=== PATIENT | male | born 1940 | race Caucasian/White ===

== ENCOUNTER → 2017-01-25 | Outpatient (REF) | payer MEDICARE ==
[~2017-01-25] MED LIST: AMLO10TA2 PO; ASPI1TAB PO; BUSP5TA PO; HYDR-2807 PO; ISOS20TAB PO
[2017-01-25 18:31] LABS: MEAN CORPUSCULAR HEMOGLOBIN 28.7 pg (27.0-33.0); MEAN CORPUSCULAR HGB CONC 32.8 g/dl (32.0-36.5); MEAN CORPUSCULAR VOLUME 87.6 fl (80.0-96.0); RED CELL DISTRIBUTION WIDTH 15.6 % (11.5-14.5); WHITE BLOOD COUNT 8.1 K/mm3 (4.0-10.0)
[2017-01-25 19:03] LABS: FOLATE > 24.0 NG/ML (>5.4); VITAMIN B12 LEVEL 489 PG/ML (247-911)
[2017-01-25 19:22] LABS: ALBUMIN 3.8 GM/DL (3.2-5.2); ALBUMIN/GLOBULIN RATIO 1.09 (1.00-1.93); ALKALINE PHOSPHATASE 83 U/L (45-117); ALT/SGPT 21 U/L (12-78); ANION GAP 7 MEQ/L (8-16); AST/SGOT 14 U/L (15-37); BILIRUBIN,TOTAL 0.2 MG/DL (0.2-1.0); BLOOD UREA NITROGEN 19 MG/DL (7-18); CALCIUM LEVEL 9.1 MG/DL (8.8-10.2); CARBON DIOXIDE LEVEL 28 MEQ/L (21-32); CHLORIDE LEVEL 106 MEQ/L (98-107); CREATININE FOR GFR 1.33 MG/DL (0.70-1.30); FREE T4 0.95 NG/DL (0.76-1.46); GLUCOSE, FASTING 120 MG/DL (83-110); POTASSIUM SERUM 4.2 MEQ/L (3.5-5.1); SODIUM LEVEL 141 MEQ/L (136-145); TOTAL PROTEIN 7.3 GM/DL (6.4-8.2)
== END ==
LOC: M SFHCADAM 13:45
PROVIDERS: ATTEND Family Medicine
DX: R63.4 Abnormal weight loss (principal); R53.83 Other fatigue; E74.9 Disorder of carbohydrate metabolism, unspecified; F17.210 Nicotine dependence, cigarettes, uncomplicated; Z79.899 Other long term (current) drug therapy
CPT/HCPCS: 80053; 82607; 82746; 83036; 84439; 84443; 85027; 85652; 99406; G0463

== ENCOUNTER → 2017-02-06 | Outpatient (CLI) | payer MEDICARE ==
--- NOTE | 2017-02-06 16:36 | REP ---
REASON: Weight loss. COMPARISON: 09/03/2013. The lack of intravenous contrast decreases the sensitivity of the exam. There is no mediastinal or hilar adenopathy. There are no pleural or pericardial effusions. Calcific atherosclerotic changes are again seen in the thoracic aorta status quo. There is no change in appearance of the imaged upper abdomen. There are renovascular calcifications bilaterally status quo. There is no change in appearance of the imaged osseous structures. There are age related changes status quo. Evaluation of the lung mckeon again show lung field hyperexpansion with scattered cystic air spaces in a fashion which appears slightly increased from the prior exam. There is a new asymmetric opacity in the right upper lobe which is part solid. The solid component measures 8 mm with an overall measurement of 1 cm. There are no other new abnormal nodules, masses, or opacities. IMPRESSION: New asymmetric right upper lobe density as described above according to the revised Fleischner's society criteria this represents a category 4B lesion for which CT PET and or tissue sampling is recommended depending on the probability of malignancy and comorbidities. Since the solid component measures [address] PET alone may be used. Signed by Juice Darling DO 02/07/2017 09:04 A
== END ==
LOC: M RAD 15:13
PROVIDERS: ATTEND Family Medicine
DX: R63.4 Abnormal weight loss (principal); J44.9 Chronic obstructive pulmonary disease, unspecified; R91.8 Other nonspecific abnormal finding of lung field

== ENCOUNTER → 2017-02-26 | Outpatient (CLI) | payer MEDICARE ==
--- NOTE | 2017-02-27 19:35 | REP ---
Whole body PET CT scan: Studies performed for a right upper lobe lung nodule identified on a recent CT of the chest dated seven 07/17/2017. The the patient had a prior whole body PET CT scan dated 03/13/2012. Images from that scan are no longer available on the computer archive. However, the transcribed report of the prior study states that there were no hypermetabolic foci. On the study today whole-body PET CT scanning is performed from the skull base to the upper thighs: Neck and supraclavicular areas: There are no hypermetabolic foci. Chest: There are no hypermetabolic foci. The patient's known lung nodule in the right upper lobe demonstrates a maximal standard uptake value of 0.4 indicating no radiotracer uptake. Abdomen, pelvis and upper thighs: There is a hypermetabolic mass in the rectum measuring 3 cm in diameter with a standard uptake value of 12.0, compatible with neoplasm. There are no other hypermetabolic foci. 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 There are no other hypermetabolic foci. Specifically, the patient's known right lung nodule demonstrates no radiotracer avidity. The study is performed with 10 mCi of F 18 FDG. Signed by Judd Zuniga MD 02/27/2017 07:27 P
== END ==
LOC: M PLARAD 15:27
PROVIDERS: ATTEND Internal Medicine Pulmonary Disease
DX: K62.9 Disease of anus and rectum, unspecified (principal); R91.1 Solitary pulmonary nodule
CPT/HCPCS: 78815; A9552

== ENCOUNTER → 2017-04-11 | Outpatient (CLI) | payer MEDICARE ==
[~2017-04-11] VITALS: Ht 170.2 cm; Wt 76.2 kg
[~2017-04-11] MED LIST changes: +LIDOCAINE 2% INJ 100 MG/5 ML SDV (FOR ANES.) As Ordered ONE; +NS 1,000 ML IV ONE; +PROPOFOL 200 MG/20 ML VIAL As Ordered ONE
--- NOTE | 2017-04-11 09:22 | ROOR ---
Patient Name: Judd Brady Procedure Date: 04/11/2017 9:04 AM Date of : 1940 Age: 76 Room: [facility] Gender: Male Note Status: Finalized Procedure: Upper GI endoscopy Indications: Melena Providers: Malik Elam Jr, MD Referring MD: Arsenio Quiroz MD Requesting Provider: Medicines: Propofol per Anesthesia Complications: No immediate complications. Procedure: Pre-Anesthesia Assessment: - Prior to the procedure, a History and Physical was performed, and patient medications and allergies were reviewed. The patient is competent. The risks and benefits of the procedure and the sedation options and risks were discussed with the patient. All questions were answered and informed consent was obtained. Patient identification and proposed procedure were verified by the physician and the nurse in the pre-procedure area and in the procedure room. Mental Status Examination: alert and oriented. Airway Examination: normal oropharyngeal airway and neck mobility. Respiratory Examination: clear to auscultation. CV Examination: normal. ASA Grade Assessment: II - A patient with mild systemic disease. After reviewing the risks and benefits, the patient was deemed in satisfactory condition to undergo the procedure. The anesthesia plan was to use moderate sedation / analgesia (conscious sedation). Immediately prior to administration of medications, the patient was re-assessed for adequacy to receive sedatives. The heart rate, respiratory rate, oxygen saturations, blood pressure, adequacy of pulmonary ventilation, and response to care were monitored throughout the procedure. The physical status of the patient was re-assessed after the procedure. The Endoscope was introduced through the mouth, and advanced to the second part of duodenum. The patient tolerated the procedure well. Findings: The upper third of the esophagus, middle third of the esophagus and lower third of the esophagus were normal. A medium-sized hiatal hernia was present. Scattered moderate inflammation characterized by congestion (edema), erosions, erythema and friability was found in the gastric body and in the gastric antrum. Biopsies were taken with a cold forceps for histology. The cardia, gastric fundus and gastric body were normal. The second portion of the duodenum was normal. Mild inflammation characterized by congestion (edema), erythema, friability and granularity was found in the duodenal bulb. Impression: - Normal upper third of esophagus, middle third of esophagus and lower third of esophagus. - Medium-sized hiatal hernia. - Gastritis. Biopsied. - Normal cardia, gastric fundus and gastric body. - Normal second portion of the duodenum. - Duodenitis. Recommendation: - Discharge patient to home (ambulatory). - Return to my office as previously scheduled. Malik Elam MD Malik Elam Jr, MD 04/11/2017 9:22:00 AM This report has been signed electronically. Number of Addenda: 0 Note Initiated On: 04/11/2017 9:04 AM Estimated Blood Loss: Estimated blood loss: none.
--- NOTE | 2017-04-11 09:36 | ROOR ---
Patient Name: Judd Brady Procedure Date: 04/11/2017 9:05 AM Date of : 1940 Age: 76 Room: [facility] Gender: Male Note Status: Finalized Procedure: Colonoscopy Indications: Abnormal PET scan of the GI tract Providers: Malik Elam Jr, MD Referring MD: Arsenio Quiroz MD Requesting Provider: Medicines: Propofol per Anesthesia Complications: No immediate complications. Procedure: Pre-Anesthesia Assessment: - Prior to the procedure, a History and Physical was performed, and patient medications and allergies were reviewed. The patient is competent. The risks and benefits of the procedure and the sedation options and risks were discussed with the patient. All questions were answered and informed consent was obtained. Patient identification and proposed procedure were verified by the physician and the nurse in the pre-procedure area and in the procedure room. Mental Status Examination: alert and oriented. Airway Examination: normal oropharyngeal airway and neck mobility. Respiratory Examination: clear to auscultation. CV Examination: normal. ASA Grade Assessment: II - A patient with mild systemic disease. After reviewing the risks and benefits, the patient was deemed in satisfactory condition to undergo the procedure. The anesthesia plan was to use moderate sedation / analgesia (conscious sedation). Immediately prior to administration of medications, the patient was re-assessed for adequacy to receive sedatives. The heart rate, respiratory rate, oxygen saturations, blood pressure, adequacy of pulmonary ventilation, and response to care were monitored throughout the procedure. The physical status of the patient was re-assessed after the procedure. The Colonoscope was introduced through the anus and advanced to the cecum, identified by appendiceal orifice and ileocecal valve. The colonoscopy was performed without difficulty. The patient tolerated the procedure well. The quality of the bowel preparation was adequate and good. Findings: The perianal exam findings include non-thrombosed external hemorrhoids, non-thrombosed internal hemorrhoids, internal hemorrhoids that prolapse with straining, but spontaneously regress to the resting position (Grade II) and internal hemorrhoids that prolapse with straining, but require manual replacement into the anal canal (Grade III). The rectum appeared normal. The recto-sigmoid colon, transverse colon, ascending colon, cecum, appendiceal orifice and ileocecal valve appeared normal. Multiple small and large-mouthed diverticula were found in the sigmoid colon and descending colon. Two medium-sized angiodysplastic lesions without bleeding were found in the cecum. Impression: - Non-thrombosed external hemorrhoids, non-thrombosed internal hemorrhoids, internal hemorrhoids that prolapse with straining, but spontaneously regress to the resting position (Grade II) and internal hemorrhoids that prolapse with straining, but require manual replacement into the anal canal (Grade III) found on perianal exam. - The rectum is normal. - The recto-sigmoid colon, transverse colon, ascending colon, cecum, appendiceal orifice and ileocecal valve are normal. - Diverticulosis in the sigmoid colon and in the descending colon. - Two non-bleeding colonic angiodysplastic lesions. - No specimens collected. Recommendation: - Discharge patient to home (ambulatory). - Repeat colonoscopy in 10 years for screening purposes. Malik Elam MD Malik Elam Jr, MD 04/11/2017 9:36:22 AM This report has been signed electronically. Number of Addenda: 0 Note Initiated On: 04/11/2017 9:05 AM Estimated Blood Loss: Estimated blood loss: none.
[2017-04-11 10:03] VITALS: BP 136/67
== END | disposition home or self-care (01) ==
LOC: M OPP 07:54
PROVIDERS: ATTEND Surgery
DX: R93.3 Abnormal findings on diagnostic imaging of other parts of digestive tract (principal); K64.2 Third degree hemorrhoids; K64.1 Second degree hemorrhoids; K64.4 Residual hemorrhoidal skin tags; K55.20 Angiodysplasia of colon without hemorrhage; K57.30 Diverticulosis of large intestine without perforation or abscess without bleeding; K92.1 Melena; K44.9 Diaphragmatic hernia without obstruction or gangrene; K29.80 Duodenitis without bleeding; K29.70 Gastritis, unspecified, without bleeding; K21.9 Gastro-esophageal reflux disease without esophagitis; I25.10 Atherosclerotic heart disease of native coronary artery without angina pectoris; I10 Essential (primary) hypertension; I25.2 Old myocardial infarction; J44.9 Chronic obstructive pulmonary disease, unspecified; Z86.73 Personal history of transient ischemic attack (TIA), and cerebral infarction without residual deficits; F17.210 Nicotine dependence, cigarettes, uncomplicated; G47.30 Sleep apnea, unspecified; Z88.5 Allergy status to narcotic agent; Z79.82 Long term (current) use of aspirin; Z79.899 Other long term (current) drug therapy

== ENCOUNTER → 2018-01-02 | Outpatient (REF) | payer MEDICARE ==
[2018-01-02 12:11] LABS: HEMATOCRIT 31.9 % (42.0-52.0); HEMOGLOBIN 10.1 g/dl (13.5-17.5); MEAN CORPUSCULAR HEMOGLOBIN 26.9 pg (27.0-33.0); MEAN CORPUSCULAR HGB CONC 31.7 g/dl (32.0-36.5); MEAN CORPUSCULAR VOLUME 84.8 fl (80.0-96.0); PLATELET COUNT, AUTOMATED 370 10^3/uL (150-450); RED BLOOD COUNT 3.76 10^6/uL (4.30-6.10); RED CELL DISTRIBUTION WIDTH 15.8 % (11.5-14.5); WHITE BLOOD COUNT 11.2 10^3/uL (4.0-10.0)
[2018-01-02 12:42] LABS: ALBUMIN 3.3 GM/DL (3.2-5.2); ALKALINE PHOSPHATASE 92 U/L (45-117); ALT/SGPT 11 U/L (12-78); ANION GAP 6 MEQ/L (8-16); AST/SGOT 9 U/L (7-37); BILIRUBIN,TOTAL 0.3 MG/DL (0.2-1.0); BLOOD UREA NITROGEN 21 MG/DL (7-18); CALCIUM LEVEL 8.9 MG/DL (8.8-10.2); CARBON DIOXIDE LEVEL 29 MEQ/L (21-32); CHLORIDE LEVEL 107 MEQ/L (98-107); CHOLESTEROL LEVEL 151 MG/DL (<200); CHOLESTEROL RISK RATIO 3.282 (<5); CREATININE FOR GFR 1.22 MG/DL (0.70-1.30); GLOMERULAR FILTRATION RATE > 60.0 (>42); GLUCOSE, FASTING 81 MG/DL (70-100); HDL CHOLESTEROL 46 MG/DL (>40); NON-HDL-C 105 MG/DL; POTASSIUM SERUM 4.7 MEQ/L (3.5-5.1); SODIUM LEVEL 142 MEQ/L (136-145); TOTAL PROTEIN 6.6 GM/DL (6.4-8.2); TRIGLYCERIDES LEVEL 80 MG/DL (<150)
== END ==
LOC: M SFHCPLAZ 09:54
DX: I25.10 Atherosclerotic heart disease of native coronary artery without angina pectoris (principal); E78.2 Mixed hyperlipidemia
CPT/HCPCS: 80053

== ENCOUNTER → 2018-01-09 | Outpatient (REF) | payer MEDICARE ==
[2018-01-09 19:58] LABS: RETIC HEMOGLOBIN EQUIVALENT 29.3 pg (24-36); RETICULOCYTE # 51.7 10^9/L (17-77); RETICULOCYTE % 1.3 % (0.5-1.5)
[2018-01-09 20:16] LABS: FERRITIN 29 NG/ML (26-388); IRON (FE) 22 UG/DL (65-175); PERCENT SATURATION 6.8 % (19.7-50.0); TOTAL IRON BINDING CAPACITY 322 UG/DL (250-450); TOTAL PROTEIN 6.9 GM/DL (6.4-8.2); VITAMIN B12 LEVEL 325 PG/ML (247-911)
[2018-01-10 12:49] LABS: FOLATE 16.1 NG/ML (>5.4)
[2018-01-12 00:06] LABS: FREE KAPPA LIGHT CHAINS SERUM 35.4 mg/L (3.3-19.4); FREE LAMBDA LIGHT CHAINS SERUM 25.6 mg/L (5.7-26.3); KAPPA/LAMBDA RATIO SERUM 1.38 (0.26-1.65)
[2018-01-13 13:03] LABS: ALBUMIN 3.51 GM/DL (3.29-5.55); ALBUMIN % 50.8 % (55.8-66.1); ALPHA-1-GLOBULIN % 7.2 % (2.9-4.9); ALPHA-2-GLOBULINS 0.98 GM/DL (0.42-0.99); ALPHA-2-GLOBULINS % 14.2 % (7.1-11.8); BETA-1-GLOBULINS 0.51 GM/DL (0.28-0.60); BETA-1-GLOBULINS % 7.4 % (4.7-7.2); BETA-2-GLOBULINS 0.45 GM/DL (0.19-0.55); BETA-2-GLOBULINS % 6.5 % (3.2-6.5); GAMMA GLOBULIN % 13.9 % (11.1-18.8); GAMMA GLOBULINS 0.96 GM/DL (0.65-1.58)
== END ==
LOC: M SFHCADAM 12:18
DX: D64.9 Anemia, unspecified (principal)
CPT/HCPCS: 82746

== ENCOUNTER 2018-01-15 07:09 | Outpatient (CLI) | payer MEDICARE | END 2018-01-16 | LOC: M RAD 07:09 | DX: R51 Headache (principal); I67.2 Cerebral atherosclerosis | CPT/HCPCS: 70551 ==

== ENCOUNTER → 2018-05-14 | Outpatient (REF) | payer MEDICARE ==
[2018-05-14 13:02] LABS: MEAN CORPUSCULAR HEMOGLOBIN 26.7 pg (27.0-33.0); MEAN CORPUSCULAR HGB CONC 31.6 g/dl (32.0-36.5); MEAN CORPUSCULAR VOLUME 84.4 fl (80.0-96.0); PLATELET COUNT, AUTOMATED 336 10^3/uL (150-450); RETICULOCYTE # 58.1 10^9/L (17-77); RETICULOCYTE % 1.3 % (0.5-1.5); WHITE BLOOD COUNT 8.8 10^3/uL (4.0-10.0)
[2018-05-14 13:32] LABS: ANION GAP 6 MEQ/L (8-16); BLOOD UREA NITROGEN 26 MG/DL (7-18); CALCIUM LEVEL 9.5 MG/DL (8.8-10.2); CARBON DIOXIDE LEVEL 29 MEQ/L (21-32); CHLORIDE LEVEL 107 MEQ/L (98-107); CREATININE FOR GFR 1.58 MG/DL (0.70-1.30); FERRITIN 23 NG/ML (26-388); GLOMERULAR FILTRATION RATE 45.6 (>42); GLUCOSE, FASTING 109 MG/DL (70-100); IRON (FE) 29 UG/DL (65-175); PERCENT SATURATION 7.9 % (19.7-50.0); PHOSPHORUS LEVEL 3.6 MG/DL (2.5-4.9); POTASSIUM SERUM 4.7 MEQ/L (3.5-5.1); SODIUM LEVEL 142 MEQ/L (136-145); TOTAL IRON BINDING CAPACITY 365 UG/DL (250-450)
== END ==
LOC: M SFHCADAM 09:50
DX: D50.9 Iron deficiency anemia, unspecified (principal)
CPT/HCPCS: 83550

== ENCOUNTER → 2018-09-17 | Outpatient (CLI) | payer MEDICARE ==
[~2018-09-17] MED LIST changes: -AMLO10TA2 PO; +AMLO10TA5 PO; -LIDOCAINE 2% INJ 100 MG/5 ML SDV (FOR ANES.) As Ordered ONE; -NS 1,000 ML IV ONE; -PROPOFOL 200 MG/20 ML VIAL As Ordered ONE
[2018-09-17 13:09] LABS: CALCIUM LEVEL 8.8 MG/DL (8.8-10.2); CREATININE FOR GFR 1.25 MG/DL (0.70-1.30); GLOMERULAR FILTRATION RATE 59.8 (>42); POTASSIUM SERUM 4.5 MEQ/L (3.5-5.1)
[2018-09-17 13:10] LABS: PERCENT SATURATION 5.8 % (19.7-50.0)
[2018-09-17 13:26] LABS: HEMATOCRIT 28.5 % (42.0-52.0); HEMOGLOBIN 9.2 g/dl (13.5-17.5); MEAN CORPUSCULAR HEMOGLOBIN 25.2 pg (27.0-33.0); MEAN CORPUSCULAR HGB CONC 32.3 g/dl (32.0-36.5); MEAN CORPUSCULAR VOLUME 78.1 fl (80.0-96.0); PLATELET COUNT, AUTOMATED 343 10^3/uL (150-450); RED BLOOD COUNT 3.65 10^6/uL (4.30-6.10); WHITE BLOOD COUNT 7.2 10^3/uL (4.0-10.0)
== END ==
LOC: M WUC 10:07
PROVIDERS: ATTEND Family Medicine
DX: D50.9 Iron deficiency anemia, unspecified (principal); I11.9 Hypertensive heart disease without heart failure

== ENCOUNTER → 2018-10-07 | Outpatient (REF) | payer MEDICARE ==
[2018-10-07 12:32] LABS: AMORPHOUS SEDIMENT SMALL (NEGATIVE); APPEARANCE, URINE HAZY (CLEAR); BACTERIA, URINE AUTO NEGATIVE (NEGATIVE); BILIRUBIN, URINE AUTO NEGATIVE (NEGATIVE); BLOOD, URINE BLOOD NEGATIVE (NEGATIVE); CALCIUM OXALATE CRYSTALS SMALL; COLOR, URINE AMBER (YELLOW); GLUCOSE, URINE (UA) AUTO NEGATIVE (NEGATIVE); KETONE, URINE AUTO TRACE mg/dL (NEGATIVE); LEUKOCYTE ESTERASE, URINE AUTO NEGATIVE (NEGATIVE); MUCUS, URINE SMALL (NEGATIVE); NITRITE, URINE AUTO NEGATIVE (NEGATIVE); PROTEIN, URINE AUTO 1+ mg/dL (NEGATIVE); RBC, URINE AUTO 2 /HPF (0-3); SPECIFIC GRAVITY URINE AUTO 1.027 (1.002-1.035); SQUAMOUS EPITHELIAL CELL UR AU 0 /HPF (0-6); WBC, URINE AUTO 1 /HPF (0-3)
== END ==
LOC: M SFHCADAM 11:08
PROVIDERS: ATTEND Family Medicine
DX: N41.0 Acute prostatitis (principal)

== ENCOUNTER → 2018-12-09 | Outpatient (CLI) | payer MEDICARE ==
[~2018-12-09] MED LIST changes: -ASPI1TAB PO; +ASPI81TA26 PO
[2018-12-09 09:52] LABS: BASO # 0.1 10^3/uL (0.0-0.2); BASO % 1.3 % (0.0-1.0); EOS # 0.2 10^3/uL (0.0-0.50); EOS % 3.7 % (0.0-3.0); HEMATOCRIT 38.7 % (42.0-52.0); HEMOGLOBIN 12.3 g/dl (13.5-17.5); LYMPH # 1.3 10^3/uL (1.5-4.5); LYMPH % 24.2 % (24.0-44.0); MEAN CORPUSCULAR HEMOGLOBIN 27.5 pg (27.0-33.0); MEAN CORPUSCULAR HGB CONC 31.8 g/dl (32.0-36.5); MEAN CORPUSCULAR VOLUME 86.4 fl (80.0-96.0); MONO # 0.5 10^3/uL (0.0-0.8); MONO % 9.7 % (0.0-5.0); NEUTROPHILS # 3.3 10^3/uL (1.8-7.7); NEUTROPHILS % 60.9 % (36.0-66.0); PLATELET COUNT, AUTOMATED 261 10^3/uL (150-450); RED BLOOD COUNT 4.48 10^6/uL (4.30-6.10); WHITE BLOOD COUNT 5.4 10^3/uL (4.0-10.0)
[2018-12-09 10:12] LABS: ALBUMIN 3.7 GM/DL (3.2-5.2); ALT/SGPT 20 U/L (12-78); BILIRUBIN,TOTAL 0.2 MG/DL (0.2-1.0); BLOOD UREA NITROGEN 22 MG/DL (7-18); CARBON DIOXIDE LEVEL 28 MEQ/L (21-32); CHLORIDE LEVEL 108 MEQ/L (98-107); CREATININE FOR GFR 1.02 MG/DL (0.70-1.30); FREE T4 0.93 NG/DL (0.76-1.46); GLOMERULAR FILTRATION RATE > 60.0 (>42); GLUCOSE, FASTING 99 MG/DL (70-100); POTASSIUM SERUM 4.1 MEQ/L (3.5-5.1); SODIUM LEVEL 141 MEQ/L (136-145); TOTAL PROTEIN 6.7 GM/DL (6.4-8.2)
== END ==
LOC: M LAB 09:02
PROVIDERS: ATTEND Internal Medicine Gastroenterology
DX: D50.9 Iron deficiency anemia, unspecified (principal)

== ENCOUNTER → 2018-12-11 | Outpatient (CLI) | payer MEDICARE ==
[~2018-12-11] MED LIST changes: +GASTROGRAFIN SOLUTION 30ML (Q9963) As Ordered ONE; +ISOVUE-370 76% 100ML VIAL (Q9967) As Ordered ONE
--- NOTE | 2018-12-11 16:03 | REP ---
CT abdomen and pelvis without and with IV contrast: With oral contrast. History: 50 pound weight loss in the last year. Iron deficiency anemia. CT contrast dose: 100 ml of intravenous Isovue 370. Comparison study is imaging from a PET-CT study dated February 26, 2017. CT findings: Preliminary digital steam locomotive firer/fireman radiograph demonstrates moderate stool. Bowel gas pattern is otherwise normal. The lung bases show emphysematous changes bilaterally. There are calcific pleural plaques at the right base. They are otherwise clear. The liver parenchyma is somewhat hyperdense relative to spleen on noncontrast study. This can be seen in iron deposition disorders such as hemochromatosis. No focal liver mass lesion is seen. The spleen is homogeneous in texture and normal in size. No adrenal lesion is seen. There is heavy vascular calcification. There is no evidence of hydronephrosis. No intrarenal nephrolithiasis is seen. There is some mild bilateral renal cortical atrophy. No abnormalities noted in the gallbladder or the pancreas. There is an infrarenal abdominal aortic aneurysm measuring 3.6 cm in greatest diameter. Iliac arteries are ectatic but non-aneurysmal. No retroperitoneal mass or adenopathy is seen. Small and large intestinal bowel loops show left colonic diverticulosis and moderate stool. There is formed stool dilating the rectum consistent with obstipation. Prostate and seminal vesicles are unremarkable. Urinary bladder is intact. No abdominal wall defect is seen. No colonic or other gastrointestinal mass lesion is observed. Impression: Somewhat hyperdense liver relative to spleen on noncontrast study. Moderate stool with fecal impaction constipation pattern. Sigmoid and descending colon diverticulosis. No CT evidence of diverticulitis. No mass lesion seen. 3.6 cm infrarenal abdominal aortic aneurysm. Electronically Signed by Del Blanco MD 12/11/2018 08:18 P
== END ==
LOC: M RAD 12:31
PROVIDERS: ATTEND Internal Medicine Gastroenterology
DX: I71.4 Abdominal aortic aneurysm, without rupture (principal); K57.30 Diverticulosis of large intestine without perforation or abscess without bleeding; K56.41 Fecal impaction; D50.9 Iron deficiency anemia, unspecified
CPT/HCPCS: 74178; Q9963; Q9967

== ENCOUNTER 2019-01-01 08:49 | Emergency (ER) | payer MEDICARE ==
[~2019-01-01] VITALS: Ht 170.2 cm; Wt 64.1 kg
[~2019-01-01 08:49] MED LIST changes: -GASTROGRAFIN SOLUTION 30ML (Q9963) As Ordered ONE; -ISOVUE-370 76% 100ML VIAL (Q9967) As Ordered ONE
--- NOTE | 2019-01-01 09:40 | REP ---
LEFT KNEE, FIVE VIEWS: Five views left knee performed. There is no acute fracture or dislocation. There is moderate medial joint space narrowing with subchondral sclerosis and spurring. There is mild patellofemoral compartment narrowing with subchondral sclerosis and spurring. There is mild to moderate joint effusion. Vascular calcifications are seen posteriorly. IMPRESSION: Degenerative changes. Mild to moderate joint effusion. No acute fracture or dislocation. Electronically Signed by Judd Rogers MD 01/05/2019 01:41 P
[2019-01-01] MEDS ORDERED: NORCO, ANEXSIA 5/325MG TABLET (HYDROcodone/ACETAMINOPHEN) PO ONE (09:45)
[2019-01-01] MEDS ORDERED: NORC1TAB7 PO ×2 (10:23→11:01)
[2019-01-01 10:30] VITALS: BP 122/63
[2019-01-02] MEDS ORDERED: TAMS1CAP17 PO (08:28)
[2019-01-02] MEDS ORDERED: FINA5TAB2 PO (08:28)
== END 2019-01-01 10:38 | disposition home or self-care (01) ==
LOC: M ED 08:49
DX: M25.462 Effusion, left knee (principal); S80.02XA Contusion of left knee, initial encounter; W01.0XXA Fall on same level from slipping, tripping and stumbling without subsequent striking against object, initial encounter; Y92.099 Unspecified place in other non-institutional residence as the place of occurrence of the external cause; Y93.9 Activity, unspecified; Y99.9 Unspecified external cause status; I10 Essential (primary) hypertension; Z72.0 Tobacco use; Z79.82 Long term (current) use of aspirin; Z79.899 Other long term (current) drug therapy; Z88.8 Allergy status to other drugs, medicaments and biological substances

== ENCOUNTER → 2019-01-07 | Outpatient (CLI) | payer MEDICARE ==
[~2019-01-07] MED LIST changes: +FINA5TAB2 PO; +NORC1TAB7 PO; +TAMS1CAP17 PO
[2019-01-07 16:27] LABS: BLOOD UREA NITROGEN 21 MG/DL (7-18); CALCIUM LEVEL 8.6 MG/DL (8.8-10.2); CARBON DIOXIDE LEVEL 26 MEQ/L (21-32); CHLORIDE LEVEL 107 MEQ/L (98-107); CREATININE FOR GFR 1.08 MG/DL (0.70-1.30); FERRITIN 49 NG/ML (26-388); GLOMERULAR FILTRATION RATE > 60.0 (>42); GLUCOSE, FASTING 92 MG/DL (70-100); IRON (FE) 48 UG/DL (65-175); PERCENT SATURATION 16.1 % (19.7-50.0); POTASSIUM SERUM 4.2 MEQ/L (3.5-5.1); SODIUM LEVEL 141 MEQ/L (136-145); TOTAL IRON BINDING CAPACITY 298 UG/DL (250-450)
[2019-01-07 16:29] LABS: HEMATOCRIT 36.3 % (42.0-52.0); HEMOGLOBIN 11.5 g/dl (13.5-17.5); MEAN CORPUSCULAR HEMOGLOBIN 27.9 pg (27.0-33.0); MEAN CORPUSCULAR HGB CONC 31.7 g/dl (32.0-36.5); MEAN CORPUSCULAR VOLUME 88.1 fl (80.0-96.0); PLATELET COUNT, AUTOMATED 232 10^3/uL (150-450); RED BLOOD COUNT 4.12 10^6/uL (4.30-6.10); WHITE BLOOD COUNT 5.8 10^3/uL (4.0-10.0)
== END ==
LOC: M WUC 11:50
PROVIDERS: ATTEND Family Medicine
DX: D50.9 Iron deficiency anemia, unspecified (principal); N13.8 Other obstructive and reflux uropathy

== ENCOUNTER 2019-01-15 08:08 | Day surgery (SDC) | payer MEDICARE ==
[~2019-01-15] VITALS: Ht 170.2 cm; Wt 65.3 kg
[~2019-01-15 08:08] MED LIST changes: +NS 1,000 ML IV ONE
[2019-01-15] MEDS ORDERED: PROPOFOL 500 MG/50 ML VIAL As Ordered ONE (09:10)
[2019-01-15] MEDS ORDERED: LIDOCAINE 2% INJ 100 MG/5 ML SDV (FOR ANES.) As Ordered ONE (09:10)
[2019-01-15] MEDS ORDERED: fentaNYL 100 MCG/2 ML INJECTION (J3010) As Ordered ONE (09:10)
--- NOTE | 2019-01-15 09:23 | ROOR ---
Patient Name: Judd Brady Procedure Date: 01/15/2019 9:01 AM Date of : 1940 Age: 78 Room: [facility] Gender: Male Note Status: Finalized Procedure: Upper GI endoscopy Indications: Iron deficiency anemia Providers: Alessandro ROB MD Referring MD: Arsenio Quiroz MD Requesting Provider: Medicines: Monitored Anesthesia Care Complications: No immediate complications. Procedure: Pre-Anesthesia Assessment: - The heart rate, respiratory rate, oxygen saturations, blood pressure, adequacy of pulmonary ventilation, and response to care were monitored throughout the procedure. The Endoscope was introduced through the mouth, and advanced to the second part of duodenum. The upper GI endoscopy was accomplished without difficulty. The patient tolerated the procedure well. Findings: The esophagus was normal. The stomach was normal. The examined duodenum was normal. Hematin (altered blood/ypqnck-xdgvqu-ebng material) was found in the stomach. Impression: - Normal esophagus. - Normal stomach. - small amount of hematin (altered blood/ncjqht-dgizht-wetr material) in the stomach. - Normal examined duodenum. - No specimens collected. Recommendation: - Small heme in stomach without a source. Possibility of swallowed blood from nosebleed,tongue bite or pulmonary.--I will order CT chest. - My office will call you in the next few days to set you up for this study/exam. Alessandro Rob MD Alessandro ROB MD 01/15/2019 9:22:32 AM Electronically signed by Alessandro ROB MD Number of Addenda: 0 Note Initiated On: 01/15/2019 9:01 AM Estimated Blood Loss: Estimated blood loss: none.
--- NOTE | 2019-01-15 10:05 | ROOR ---
Patient Name: Judd Brady Procedure Date: 01/15/2019 9:02 AM Date of : 1940 Age: 78 Room: [facility] Gender: Male Note Status: Finalized Procedure: Colonoscopy Indications: Iron deficiency anemia Providers: Alessandro ROB MD Referring MD: Arsenio Quiroz MD Requesting Provider: Medicines: Monitored Anesthesia Care Complications: No immediate complications. Procedure: Pre-Anesthesia Assessment: - The heart rate, respiratory rate, oxygen saturations, blood pressure, adequacy of pulmonary ventilation, and response to care were monitored throughout the procedure. The Colonoscope was introduced through the anus and advanced to 5 cm into the ileum. The colonoscopy was performed without difficulty. The patient tolerated the procedure well. The quality of the bowel preparation was adequate. Findings: The perianal and digital rectal examinations were normal. Four sessile polyps were found in the splenic flexure, hepatic flexure and cecum. The polyps were 4 to 5 mm in size. These polyps were removed with a cold snare. Resection and retrieval were complete. A single medium-sized angioectasia without bleeding was found in the cecum. A single medium-sized angioectasia without bleeding was found in the proximal transverse colon. For hemostasis, five hemostatic clips were successfully placed. Multiple small and large-mouthed diverticula were found in the sigmoid colon. There was evidence of diverticular spasm. Internal hemorrhoids were found during retroflexion. The hemorrhoids were moderate. Impression: - Four 4 to 5 mm polyps at the splenic flexure, at the hepatic flexure and in the cecum, removed with a cold snare. Resected and retrieved. - A single 1.3 cm non-bleeding colonic (cecum) angioectasia. This is not accessible to treatment/endoclip placement. - A single 1 cm non-bleeding colonic (transverse) angioectasia. Clips were placed. - Moderate diverticulosis in the sigmoid colon. There was evidence of diverticular spasm. - Internal hemorrhoids. Recommendation: - No ibuprofen, naproxen, or other non-steroidal anti-inflammatory drugs. - Continue/take daily iron supplement. - Telephone endoscopist for pathology results in 2 weeks. Alessandro Rob MD Alessandro ROB MD 01/15/2019 10:04:54 AM Electronically signed by Alessandro ROB MD Number of Addenda: 0 Note Initiated On: 01/15/2019 9:02 AM Estimated Blood Loss: Estimated blood loss: none.
[2019-01-15 10:20] VITALS: BP 151/72
== END 2019-01-15 10:29 | disposition home or self-care (01) ==
LOC: M OPP 08:08
PROVIDERS: ATTEND Internal Medicine Gastroenterology
DX: D12.3 Benign neoplasm of transverse colon (principal); D12.0 Benign neoplasm of cecum; K55.20 Angiodysplasia of colon without hemorrhage; K64.8 Other hemorrhoids; D50.9 Iron deficiency anemia, unspecified; K57.30 Diverticulosis of large intestine without perforation or abscess without bleeding; K92.2 Gastrointestinal hemorrhage, unspecified; F17.210 Nicotine dependence, cigarettes, uncomplicated; Z79.82 Long term (current) use of aspirin; Z79.899 Other long term (current) drug therapy; Z88.8 Allergy status to other drugs, medicaments and biological substances
CPT/HCPCS: 43235; 45385; 88305; J3010

== ENCOUNTER → 2019-02-04 | Outpatient (CLI) | payer MEDICARE ==
[~2019-02-04] MED LIST changes: -NS 1,000 ML IV ONE
--- NOTE | 2019-02-04 17:30 | REP ---
CT CHEST WITHOUT CONTRAST: 02/04/2019. Comparison: CT 06/06/2017, 02/06/2017. Clinical history: Hemoptysis. Prior solitary pulmonary nodule. Findings: Standard noncontrast technique protocol for CT with coronal and sagittal reconstructions. There are calcified pleural plaques bilaterally along the paraspinal region in the medial basal segments of both lower lobes. Small calcified granuloma deep sulcus right lower lobe as a benign finding. A couple of other tiny calcifications appear to be on the diaphragmatic pleura over the right lower lung zone posteriorly adjacent to the lower lobe. There is bullous emphysematous change scattered throughout. Greatest in the mid and upper lung zones. No pleural effusion, parenchymal mass or definite infiltrate. Some cylindrical bronchiectatic change evident. Ill-defined right upper lobe density dating back to 2017 is unchanged for 2 years indicating benign finding. I do not see dense consolidation. Tracheal airway and mainstem bronchi are grossly intact. The lobar bronchi also without definite filling defects or vessel cutoff. Heart size not enlarged. There is very minor pericardial thickening over the anterior heart margin unchanged. Coronary artery calcifications. Calcifications at the aortic root, ascending arch and descending aorta noted and grossly unchanged. No gross aneurysm. Esophagus without visible hiatal hernia. Subcentimeter mediastinal and hilar nodes with no axillary or supraclavicular mass. Bone windows show the sternum, manubrium, medial two-thirds of the clavicles included, ribs, visualized portions of scapulae and humeral heads were grossly unremarkable. Spine shows marginal osteophytes without compression deformity of destructive lesion. Some prominence of central pulmonary arteries suggesting pulmonary artery hypertension, presumably on the basis of COPD. Pancreas portion visible was unremarkable. Gallbladder seen in part shows some slight layering densities suggesting sludge. No calcified stone. That portion of liver and spleen included showed no mass or adjacent ascites. There is no ductal dilatation. Adrenal glands are grossly intact. The kidneys show some lobation and arterial calcifications in renal arteries and at the renal hilus. No hydronephrosis. Some scarring peripherally in the interpolar region on the left. Bowel loops in the upper abdomen unremarkable. Impression: 1. There is no acute infiltrate, pleural effusion, parenchymal or mediastinal mass visible. 2. Some coronary artery and arterial calcifications without aneurysm. 3. No pathologic sized mediastinal, hilar, axillary or supraclavicular mass. 4. Some degenerative changes in the spine without compression deformity or destructive lesion. Electronically Signed by Thad Steele MD 02/05/2019 08:16 A
== END ==
LOC: M RAD 13:25
PROVIDERS: ATTEND Internal Medicine Gastroenterology
DX: R04.2 Hemoptysis (principal)

== ENCOUNTER 2019-05-12 09:59 | Emergency (ER) | payer MEDICARE ==
[~2019-05-12] VITALS: Ht 170.2 cm; Wt 66.8 kg
[2019-05-12] MEDS ORDERED: FERR325T3 PO (10:17)
[2019-05-12] MEDS ORDERED: ATOR40TA75 PO (10:17)
[2019-05-12] MEDS ORDERED: FAMO40TA3 PO (10:17)
[2019-05-12 10:43] LABS: BASO # 0.1 10^3/uL (0.0-0.2); BASO % 0.8 % (0.0-1.0); EOS # 0.3 10^3/uL (0.0-0.5); EOS % 4.4 % (0.0-3.0); HEMATOCRIT 39.8 % (42.0-52.0); HEMOGLOBIN 12.7 g/dl (13.5-17.5); LYMPH # 1.5 10^3/uL (1.5-5.0); LYMPH % 23.8 % (24.0-44.0); MEAN CORPUSCULAR HEMOGLOBIN 28.2 pg (27.0-33.0); MEAN CORPUSCULAR HGB CONC 31.9 g/dl (32.0-36.5); MEAN CORPUSCULAR VOLUME 88.2 fl (80.0-96.0); MONO # 0.7 10^3/uL (0.0-0.8); MONO % 11.6 % (0.0-5.0); NEUTROPHILS # 3.8 10^3/uL (1.5-8.5); NEUTROPHILS % 59.2 % (36.0-66.0); PLATELET COUNT, AUTOMATED 290 10^3/uL (150-450); RED BLOOD COUNT 4.51 10^6/uL (4.30-6.10); WHITE BLOOD COUNT 6.4 10^3/uL (4.0-10.0)
[2019-05-12 11:18] LABS: ALBUMIN 3.7 GM/DL (3.2-5.2); ALT/SGPT 17 U/L (12-78); BILIRUBIN,DIRECT < 0.1 MG/DL (0.0-0.2); BILIRUBIN,TOTAL 0.4 MG/DL (0.2-1.0); BLOOD UREA NITROGEN 17 MG/DL (7-18); CALCIUM LEVEL 9.2 MG/DL (8.8-10.2); CARBON DIOXIDE LEVEL 28 MEQ/L (21-32); CHLORIDE LEVEL 105 MEQ/L (98-107); CREATININE FOR GFR 1.15 MG/DL (0.70-1.30); GLOMERULAR FILTRATION RATE > 60.0 (>42); GLUCOSE, FASTING 103 MG/DL (70-100); LIPASE 102 U/L (73-393); POTASSIUM SERUM 4.1 MEQ/L (3.5-5.1); SODIUM LEVEL 140 MEQ/L (136-145); TOTAL PROTEIN 7.1 GM/DL (6.4-8.2)
--- NOTE | 2019-05-12 11:33 | REP ---
CT brain: 05/12/2019. Indication: Syncope. Comparison: MRI brain dated 01/16/[address] brain dated 09/03/2013. Technique: Unenhanced axial images of the brain were obtained from skull base to vertex. Findings: There is no acute intracranial hemorrhage, acute cortical infarction, mass effect, hydrocephalus or acute calvarial fracture. Diffuse volume loss is present. Patchy areas of hypoattenuation scattered throughout the subcortical and periventricular white matter most consistent with chronic small vessel disease. Minimal periosteal mucosal thickening is noted within the visualized maxillary and ethmoid sinuses. The mastoid air cells are clear. Impression: No acute intracranial process. Electronically Signed by Genaro Tim DO 05/12/2019 11:24 A
[2019-05-12 11:56] LABS: CPK CREATINE PHOSPHOKINASE 61 U/L (39-308); MB/CK RELATIVE INDEX 1.64 (< OR =4); NT-PRO BNP 899 PG/ML (<450); TROPONIN I < 0.02 NG/ML (< 0.10)
--- NOTE | 2019-05-12 11:56 | REP ---
CT cervical spine: 05/12/2019. Indication: Cervical spine trauma. Comparison: 09/03/2013. Technique: Axial images of the cervical spine were obtained with sagittal and coronal reconstructions provided. Findings: There is no acute fracture, subluxation or dislocation. Vertebral body alignment is within anatomic limits. Significant spondylitic sequelae are present at C5/C6. There is no hemorrhage detected within the spinal canal. No areas of severe spinal canal narrowing are detected. Centrilobular emphysema sequelae are noted within the visualized lungs. Bilateral carotid atherosclerotic disease is present. Impression: No acute post traumatic injuries of the cervical spine. Electronically Signed by Genaro Tim DO 05/12/2019 11:47 A
--- NOTE | 2019-05-12 13:01 | REP ---
Single view chest: 05/12/2019. Indication: Syncope. Comparison: CT chest dated 02/04/2019. Findings: The lungs are free of infiltrate. There is no pneumothorax or significant pleural fluid. Emphysema sequelae are present. Right basilar linear atelectasis is noted. Cardiac silhouette is within normal limits. Impression: No acute cardiopulmonary process. Electronically Signed by Genaro Tim DO 05/12/2019 12:52 P
[2019-05-12] MEDS ORDERED: MECLIZINE 25 MG TABLET PO ONE (13:30)
[2019-05-12] MEDS ORDERED: PROMETHAZINE INJ 25 MG/ML VIAL (J2550) IV ONE (13:45)
[2019-05-12] MEDS ORDERED: NS 1,000 ML IV ONE (13:45)
[2019-05-12 15:08] VITALS: BP 170/86
[2019-05-12] MEDS ORDERED: MECL-86 PO (15:29)
[2019-05-12] MEDS ORDERED: ONDA4TAB5 PO (15:29)
--- NOTE | 2019-05-12 21:27 | ECGEPIP ---
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
== END 2019-05-12 15:42 | disposition home or self-care (01) ==
LOC: M ED 09:59
DX: R42 Dizziness and giddiness (principal); I95.1 Orthostatic hypotension; R00.1 Bradycardia, unspecified; I25.10 Atherosclerotic heart disease of native coronary artery without angina pectoris; I10 Essential (primary) hypertension; R91.8 Other nonspecific abnormal finding of lung field; J44.9 Chronic obstructive pulmonary disease, unspecified; E78.5 Hyperlipidemia, unspecified; Z87.19 Personal history of other diseases of the digestive system; Z86.73 Personal history of transient ischemic attack (TIA), and cerebral infarction without residual deficits; K21.9 Gastro-esophageal reflux disease without esophagitis; N40.0 Benign prostatic hyperplasia without lower urinary tract symptoms; D50.9 Iron deficiency anemia, unspecified; I71.4 Abdominal aortic aneurysm, without rupture; F17.200 Nicotine dependence, unspecified, uncomplicated; Z79.82 Long term (current) use of aspirin; Z79.899 Other long term (current) drug therapy; Z88.8 Allergy status to other drugs, medicaments and biological substances

== ENCOUNTER → 2019-07-07 | Outpatient (CLI) | payer MEDICARE ==
[~2019-07-07] MED LIST changes: +ATOR40TA75 PO; +FAMO40TA3 PO; +FERR325T3 PO; +MECL-86 PO; +ONDA4TAB5 PO
[2019-07-07 17:09] LABS: HEMATOCRIT 35.1 % (42.0-52.0); HEMOGLOBIN 10.5 g/dl (13.5-17.5); MEAN CORPUSCULAR HGB CONC 29.9 g/dl (32.0-36.5); MEAN CORPUSCULAR VOLUME 90.2 fl (80.0-96.0); PLATELET COUNT, AUTOMATED 291 10^3/uL (150-450); RED BLOOD COUNT 3.89 10^6/uL (4.30-6.10); WHITE BLOOD COUNT 4.9 10^3/uL (4.0-10.0)
[2019-07-07 17:12] LABS: ALBUMIN 3.5 GM/DL (3.2-5.2); ALT/SGPT 15 U/L (12-78); BILIRUBIN,TOTAL 0.2 MG/DL (0.2-1.0); BLOOD UREA NITROGEN 24 MG/DL (7-18); CALCIUM LEVEL 8.6 MG/DL (8.8-10.2); CARBON DIOXIDE LEVEL 26 MEQ/L (21-32); CHLORIDE LEVEL 108 MEQ/L (98-107); CHOLESTEROL LEVEL 187 MG/DL (<200); CHOLESTEROL RISK RATIO 3.462 (<5); CREATININE FOR GFR 1.18 MG/DL (0.70-1.30); FERRITIN 18 NG/ML (26-388); GLOMERULAR FILTRATION RATE > 60.0 (>42); GLUCOSE, FASTING 100 MG/DL (70-100); HDL CHOLESTEROL 54 MG/DL (>40); IRON (FE) 21 UG/DL (65-175); LDL CHOLESTEROL 110 MG/DL (<100); NON-HDL-C 133 MG/DL; POTASSIUM SERUM 4.4 MEQ/L (3.5-5.1); SODIUM LEVEL 140 MEQ/L (136-145); TOTAL IRON BINDING CAPACITY 349 UG/DL (250-450); TOTAL PROTEIN 6.8 GM/DL (6.4-8.2); TRIGLYCERIDES LEVEL 113 MG/DL (<150)
== END ==
LOC: M WUC 10:57
PROVIDERS: ATTEND Family Medicine
DX: I25.10 Atherosclerotic heart disease of native coronary artery without angina pectoris (principal); D64.9 Anemia, unspecified; E78.2 Mixed hyperlipidemia; Z12.5 Encounter for screening for malignant neoplasm of prostate
CPT/HCPCS: 36415; 80053; 80061; 82728; 83550; 85027; 85046; G0103

== ENCOUNTER → 2020-03-08 | Outpatient (CLI) | payer MEDICARE ==
[~2020-03-08] MED LIST changes: -AMLO10TA5 PO; +AMLO1TAB25 PO; +ATOR1TAB21 PO; +FERR325T18 PO; -HYDR-2807 PO; +HYDR-4433 PO; +MECL1TAB31 PO; +NORC1TAB5 PO; +OMEP1CAP73 PO; +ONDA-83 PO; -ONDA4TAB5 PO
--- NOTE | 2020-04-19 08:35 | REP ---
CT ABDOMEN AND PELVIS WITHOUT IV OR ORAL CONTRAST Report is delayed due to a malware attack on this facility. COMPARISON: CT study from 12/11/2018. HISTORY: Abdominal aortic aneurysm without rupture. Nicotine dependence. CT FINDINGS: Preliminary digital diver tender radiograph shows moderate stool in the distal colon and rectum. Bowel gas pattern is otherwise unremarkable. The lung bases show emphysematous changes, but are otherwise clear. There are granulomatous calcifications in the right lower lobe. Vascular calcification is observed. No focal hepatic or splenic lesion is seen. Liver and spleen are normal in size. No abnormality is noted in the gallbladder. The pancreas is unremarkable. Extensive vascular calcification is noted. There is an intrarenal abdominal aortic aneurysm again seen. This measures 4.2 cm in greatest anteroposterior dimension. Previously 3.6 cm. No perianeurysmal hemorrhage or mass effect. The common iliac arteries are ectatic bilaterally measuring 2.2 cm on the left and 1.9 cm on the right. There is left colonic diverticulosis without CT evidence of diverticulitis. Urinary bladder is unremarkable. No hydronephrosis. IMPRESSION: A 4.2 cm intrarenal abdominal aortic aneurysm slightly increased in size from the prior study of 12/11/2018. Extensive vascular calcification. Left colonic diverticulosis. MTDD
== END ==
LOC: M RAD 11:00
PROVIDERS: ATTEND Physician Assistant
DX: I71.4 Abdominal aortic aneurysm, without rupture (principal); F17.210 Nicotine dependence, cigarettes, uncomplicated; K57.30 Diverticulosis of large intestine without perforation or abscess without bleeding

== ENCOUNTER 2020-03-23 18:05 | Inpatient (IN) | payer MEDICARE ==
[~2020-03-23] VITALS: Ht 170.2 cm; Wt 67.5 kg
[~2020-03-23 18:05] MED LIST changes: -ATOR1TAB21 PO; -FERR325T18 PO; -MECL1TAB31 PO; -NORC1TAB5 PO; -OMEP1CAP73 PO
[2020-03-23] MEDS: MORPHINE 4 MG/ML 1ML VIAL/SYRINGE (J2270) IV PRN ×2 (18:55→22:19)
[2020-03-23] MEDS ORDERED: ONDANSETRON 4MG/2ML VIAL IV ONE (19:00)
[2020-03-23 19:01] LABS: BASO # 0.1 10^3/uL (0.0-0.2); BASO % 0.9 % (0.0-1.0); EOS # 0.1 10^3/uL (0.0-0.5); EOS % 1.2 % (0.0-3.0); HEMATOCRIT 35.1 % (42.0-52.0); HEMOGLOBIN 11.8 g/dl (13.5-17.5); LYMPH # 1.1 10^3/uL (1.5-5.0); LYMPH % 19.5 % (24.0-44.0); MEAN CORPUSCULAR HEMOGLOBIN 29.3 pg (27.0-33.0); MEAN CORPUSCULAR HGB CONC 33.6 g/dl (32.0-36.5); MEAN CORPUSCULAR VOLUME 87.1 fl (80.0-96.0); MONO # 0.5 10^3/uL (0.0-0.8); MONO % 8.4 % (0.0-5.0); NEUTROPHILS # 4.1 10^3/uL (1.5-8.5); NEUTROPHILS % 69.8 % (36.0-66.0); PLATELET COUNT, AUTOMATED 225 10^3/uL (150-450); RED BLOOD COUNT 4.03 10^6/uL (4.30-6.10); WHITE BLOOD COUNT 5.9 10^3/uL (4.0-10.0)
[2020-03-23 19:05] LABS: INR 1.05; PROTHROMBIN TIME 13.9 SECONDS (11.8-14.0)
[2020-03-23] MEDS ORDERED: ISOVUE-370 76% 100ML VIAL As Ordered ONE (19:08)
[2020-03-23 19:14] LABS: ABG BASE EXCESS -2.9 (-2.0-2.0); ABG HCO3 23.1 MEQ/L (22.0-26.0); ABG O2 SATURATION 92.3 % (95.0-99.0); ABG PARTIAL PRESSURE CO2 44.8 mmHg (35.0-45.0); ABG PARTIAL PRESSURE O2 64.9 mmHg (75.0-100.0); ABG SITE RT RADIAL; ABG STANDARD HCO3 21.9 MEQ/L (22.0-26.0); ABG TOTAL CO2 24.5 MEQ/L (23.0-31.0)
[2020-03-23 19:17] LABS: BLOOD UREA NITROGEN 21 MG/DL (7-18); CALCIUM LEVEL 8.7 MG/DL (8.8-10.2); CARBON DIOXIDE LEVEL 25 MEQ/L (21-32); CHLORIDE LEVEL 107 MEQ/L (98-107); CK-MB VALUE MASS 1.2 NG/ML (<3.6); CPK CREATINE PHOSPHOKINASE 31 U/L (39-308); CREATININE FOR GFR 1.34 MG/DL (0.70-1.30); GLUCOSE, FASTING 180 MG/DL (70-100); MAGNESIUM LEVEL 2.1 MG/DL (1.8-2.4); MB/CK RELATIVE INDEX 3.87 (< OR =4); POTASSIUM SERUM 4.1 MEQ/L (3.5-5.1); SODIUM LEVEL 139 MEQ/L (136-145); TROPONIN I < 0.02 NG/ML (< 0.10)
[2020-03-23 19:18] LABS: ETHYL ALCOHOL (ETHANOL) < 0.003 % (0.000-0.010)
--- NOTE | 2020-03-23 20:26 | REPVR ---
PROCEDURE INFORMATION: Exam: CT Angiography Abdomen and Pelvis With Contrast Exam date and time: 03/23/2020 7:27 PM Age: 79 years old Clinical indication: Abdominal pain; Flank; Upper; Additional info: Syncopy pain into back HX aneurysm TECHNIQUE: Imaging protocol: Computed tomographic angiography of the abdomen and pelvis with intravenous contrast material. 3D rendering (Not supervised by radiologist): MIP and/or 3D reconstructed images were created by the technologist. Radiation optimization: All CT scans at this facility use at least one of these dose optimization techniques: automated exposure control; mA and/or kV adjustment per patient size (includes targeted exams where dose is matched to clinical indication); or iterative reconstruction. Contrast material: ISOVUE 370; Contrast volume: 100 ml; Contrast route: INTRAVENOUS (IV); COMPARISON: CT ABD PELVIS W/O CONTRAST 03/08/2020 10:26 AM FINDINGS: Lungs: Emphysema. Aorta: The descending thoracic aorta measures 3.2 cm AP. The proximal abdominal aorta measures 2.8 cm AP. The infrarenal abdominal aorta measures 4.1 cm AP x 3.8 cm in width. Celiac trunk and mesenteric arteries: Stenosis at origin of celiac trunk. No stenosis of the SMA. Renal arteries: No occlusion or significant stenosis. Right iliac arteries: No occlusion or significant stenosis. 1.4 cm AP. Left iliac arteries: No occlusion or significant stenosis. 1.7 cm AP. Right renal artery no significant stenosis although wall irregularity due to plaque. Left renal artery: Stenosis at origin due to atheromatous plaque. Liver: No mass. Gallbladder and bile ducts: Unremarkable. No calcified stones. No ductal dilation. Pancreas: Unremarkable. No mass. No ductal dilation. Spleen: Unremarkable. No splenomegaly. Adrenals: Unremarkable. No mass. Kidneys and ureters: No solid mass. No hydronephrosis. Left renal cortical thinning. Stomach and bowel: Diverticulosis without evidence of diverticulitis. No obstruction. Appendix: No evidence of appendicitis. Intraperitoneal space: Unremarkable. No free air. No significant fluid collection. Lymph nodes: Unremarkable. No enlarged lymph nodes. There is a fat-containing umbilical hernia. Bladder: Unremarkable. No mass. Reproductive: Unremarkable as visualized. Bones/joints: No acute fracture. No dislocation. Soft tissues: Unremarkable. IMPRESSION: Infrarenal abdominal aortic aneurysm measuring 4.1 x 3.8 cm without evidence of rupture or dissection. It has enlarged in comparison to the 12/11/2018 CT at which time it measured 3.6 cm AP. Electronically signed by: Kimi Pacheco On 03/23/2020 20:27:07 PM
--- NOTE | 2020-03-23 20:43 | REPVR ---
PROCEDURE INFORMATION: Exam: CT Head Without Contrast Exam date and time: 03/23/2020 7:27 PM Age: 79 years old Clinical indication: Syncope and collapse TECHNIQUE: Imaging protocol: Computed tomography of the head without contrast. Radiation optimization: All CT scans at this facility use at least one of these dose optimization techniques: automated exposure control; mA and/or kV adjustment per patient size (includes targeted exams where dose is matched to clinical indication); or iterative reconstruction. COMPARISON: CT Head without contrast 05/12/2019 11:07 AM FINDINGS: Brain: There is no evidence of intracranial bleed. The romero-white differentiation appears preserved. There is no evidence of mass effect. Ventricles: The appearance of the ventricles is similar to the previous exam. However since 2013 the ventricles and cerebral sulci are more prominent probably the result of moderate atrophy. Communicating type hydrocephalus can given an identical appearance and clinical correlation would be important. Bones/joints: There is no evidence of fracture. Sinuses: There are areas mucosal thickening of the ethmoid sinuses. Mastoid air cells: Mastoid air cells appear clear. Orbits: The orbits appear symmetric. Vasculature: There is calcification of the carotid siphon bilaterally consistent with atherosclerotic change. Soft tissues: Unremarkable. IMPRESSION: Prominence of the ventricles and cerebral sulci which is increased since 2013. This may be the result moderate atrophy. Communicating type hydrocephalus can give an identical appearance and clinical correlation would be important. Electronically signed by: Justus Ibrahim On 03/23/2020 20:43:59 PM
--- NOTE | 2020-03-23 21:59 | IPNPDOC ---
Text Note Date of Service The patient was seen on 03/23/20. NOTE is a 79 yr old smoker w a PMH of TIA, HTN, CAD, CKD3, AAA and ve rtigo who presented w c/o of LOC while eating dinner that was associated w back and shoulder pain. He denied CP. 1 Syncope. Differential: vasovagal, TIA, postprandial hypotension which is common in the elderly, or arrhythmia [place] Syncope Score = 1 point = further work-up for Cardiac and non-cardiac causes of syncope recommended EKG unremarkable Plan: telemetry / check orthostats / f/u MRI head, CTA head and neck / BNP 2 Bradycardia Likey 2/2 CCB HR as low as 50 TSH wnl Plan: telemetry f/u serial trops / dc amlodipine and start lisinopril 3. AAA Increased from 3.6 to 4.1 cm in 16 months Plan: AM team to consult Dr. Chavez / smoking cessation education 4 N Anemia Plan: iron studies w ferritin, stool occult 5 Hydrocephalus Plan: AM team can f/u MRI head and consider Neuro consult 6 hx of TIA / CAD Plan: ASA / start statin 7 HTN Plan: lisinopril 8. Vertigo Plan: meclizine rest per H&P VS,Guie, I+O VS, Guie, I+O Laboratory Tests 03/23/20 18:22 Vital Signs Date Time Temp Pulse Resp B/P (MAP) Pulse Ox O2 Delivery O2 Flow Rate FiO2 03/23/20 20:30 50 18 146/65 (92) 98 Nasal Cannula 4.0 JASIEL TA MD Mar 23, 2020 21:59
[2020-03-23] MEDS ORDERED: OMEP1CAP73 PO (22:01)
[2020-03-23] MEDS ORDERED: FAMO40TA3 PO (22:01)
[2020-03-23] MEDS ORDERED: FERR325T18 PO (22:01)
[2020-03-23] MEDS ORDERED: AMLO1TAB25 PO (22:01)
[2020-03-23] MEDS ORDERED: MECL1TAB31 PO (22:01)
[2020-03-23] MEDS ORDERED: NORC1TAB5 PO (22:01)
[2020-03-23] MEDS ORDERED: MORPHINE 2 MG/ML 1ML VIAL (J2270) IV ONE (22:15)
--- NOTE | 2020-03-23 23:24 | HPEPDOC ---
General Date of Admission Mar 23, 2020 at 21:58 Date of Service: Mar 23, 2020 Chief Complaint The patient is a 79-year-old male admitted with a reason for visit of Syncope And Collapse. Source: Patient Exam Limitations: No limitations (pt memory), Other Severity: Mild, Moderate Associated Symptoms: Nausea, Vomiting, Syncope, Dizziness History of Present Illness Patient is a 79 yo male with PMH of TIA, CAD, HTN, and COPD presented to [facility] today due to 2 weeks of vertigo, 1 day of nausea/vomiting/dizziness, and witnessed syncope lasted 15 min which happened at 5PM on 03/23/2020. He reported the syncope happened as he was walking into his bedroom without any change of position, reported he was feeling more dizziness and the next thing he knew was that he was on the floor. He reported his daughter said he lost consciousness for about 15 min, and stated that he felt confused for about an hour although d uring that period of time he was A&OX3. No involuntary limb/head movement but he was told there were foaming in his mouth. No prior syncope history, and no personal or family history of seizure. Reported left ear achiness and decreased left ear hearing without tinnitus, and reported his father also has similar problem(ear ache, hearing loss, vertigo). Reported chronic history of persistent chest pain in left epigastric region and intermittent palpitation for years. 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 Reported the chest pain is constant 4/10 dull pain and reproducible, aggravated by pressure and lifting objects and alleviated by not lifting objected. Reported intermittent palpitation for years. Reported history of chronic intermittent dyspnea for years while exercising/walking only, aggravated with activity and alleviated with resting and laying down. Home Medications Scheduled Amlodipine Besylate (Amlodipine Besylate) 10 Mg Tablet, 10 MG PO DAILY, (Reported) Aspirin (Aspirin EC) 81 Mg Tab, 81 MG PO DAILY, (Reported) Famotidine (Famotidine) 40 Mg Tablet, 40 MG PO DAILY, (Reported) Ferrous Sulfate (Ferrous Sulfate) 325 Mg Tablet, 325 MG PO BID, (Reported) Finasteride (Finasteride) 5 Mg Tablet, 5 MG PO DAILY, (Reported) Omeprazole (Omeprazole) 20 Mg Capsule.dr, 20 MG PO DAILY, (Reported) Tamsulosin Hcl (Tamsulosin HCl) 0.4 Mg Capsule, 0.4 MG PO DAILY, (Reported) Scheduled PRN Hydrocodone/Acetaminophen ([place] 10-325 Tablet) 1 Each Tablet, 1 TAB PO Q4H PRN for PAIN, (Reported) Meclizine HCl (Meclizine HCl) 25 Mg Tablet, 25 MG PO Q8H PRN for VERTIGO/DIZZINESS, (Reported) Allergies Coded Allergies: meperidine (Verified Adverse Reaction, Intermediate, VOMITS AND HEADACHE, 01/01/19) Past Medical History Medical History CAD inferior wall OR(Saw JOE in the past, declined cardio f/u testing) Chronically occluded RCA, 50% LAD and distal LAD(non-occlusive stenosis) Hyperlipidemia RSD right hand TIA Hypertension Impaired fasting glucose ED GERD COPD Depression Hyperplastic colon polyp Asbestos exposure BPH C. diff colitis AAA 3.5cm 11/2018 B/l lung nodules AVM, cecum 06/14 Gastritis/duodenitis Iron deficiency anemia Surgical History Cardiac cath 06/2016 Colonoscopy EGD Social History * Smoker: current smoker Alcohol: Denies Drugs: denies A-FIB/CHADSVASC A-FIB History Current/History of A-Fib/PAF?: No Review of Systems Constitutional: Denies: Chills, Fever ENT: Reports: Head Aches, Ear Pain (left), Other Symptoms (left ear hearing loss) Pulmonary: Reports: Other Symptoms (no current dyspnea) Cardiovascular: Reports: Chest Pain (chronic left epigastric chest pain), Palpitations, Lt Headedness Gastrointestinal: Reports: Nausea, Vomiting; Denies: Abdominal Pain Neurological: Reports: Other Symptoms (post-ictal state reported, syncope); Denies: Weakness, Numbness Physical Examination General Exam: Positive: Alert, Cooperative, No Acute Distress Eye Exam: Positive: PERRLA, Conjunctiva & lids normal, EOMI ENT Exam: Positive: Atraumatic, Mucous membr. moist/pink Neck Exam: Positive: Supple, Other (no obvious carotid bruit b/l) Chest Exam: Positive: Clear to auscultation, Normal air movement; Negative: Rales, Rhonchi, Wheezing Heart Exam: Positive: Rate Normal, Regular Rhythm, Normal S1, Normal S2; Negative: Murmurs, Rubs Abdomen Exam: Positive: Normal bowel sounds, Soft; Negative: Tenderness Extremity Exam: Negative: Edema Skin Exam: Positive: Nl turgor and temperature Neuro Exam: Positive: Normal Speech, Strength at 5/5 X4 ext, Normal Tone, Sensation Intact, Cranial Nerves 3-12 NL Psych Exam: Positive: Mental status NL, Mood NL, Memory Intact, Oriented x 3; Negative: Anxiety Vital Signs Vital Signs Date Time Temp Pulse Resp B/P (MAP) Pulse Ox O2 Delivery O2 Flow Rate FiO2 03/23/20 22:30 61 18 145/63 (90) Nasal Cannula 4.0 03/23/20 21:45 95 Laboratory Data Labs 24H Laboratory Tests 2 03/23/20 18:22: Immature Granulocyte % (Auto) 0.2, Neutrophils (%) (Auto) 69.8H, Lymphocytes (%) (Auto) 19.5L, Monocytes (%) (Auto) 8.4H, Eosinophils (%) (Auto) 1.2, Basophils (%) (Auto) 0.9, Neutrophils # (Auto) 4.1, Lymphocytes # (Auto) 1.1L, Monocytes # (Auto) 0.5, Eosinophils # (Auto) 0.1, Basophils # (Auto) 0.1, Nucleated Red Blood Cells % (auto) 0.0, Prothrombin Time 13.9, Prothromb Time International Ratio 1.05, Anion Gap 7L, Glomerular Filtration Rate 55.0, Calcium Level 8.7L, Magnesium Level 2.1, Total Creatine Kinase 31L, Creatine Kinase MB 1.2, Creatine Kinase MB Relative Index 3.87, Troponin I < 0.02, Thyroid Stimulating Hormone (TSH) 1.570, Ethyl Alcohol Level < 0.003 03/23/20 18:47: Blood Gas Bicarbonate Standard 21.9L, Arterial Blood pH 7.330L, Arterial Blood Partial Pressure CO2 44.8, Arterial Blood Partial Pressure O2 64.9L, Arterial Blood Total CO2 24.5, Arterial Blood HCO3 23.1, Arterial Blood Base Excess - 2.9L, Arterial Blood Oxygen Saturation 92.3L, Arterial Blood Gas Puncture Site RT RADIAL CBC/BMP Laboratory Tests 03/23/20 18:22 Assessment/Plan 79 yo male with PMH of inferior wall OR, HTN, TIA, HTN, AAA, and COPD presented to [facility] due to first syncope episode lasting 15 min witnessed by daughter as well as 3 weeks of nausea and vomiting. 1. Syncope likely 2/2 arrhythmia vs structural heart disease vs vasovagal vs pulmonary HTN vs Meniere's disease, r/o seizure, TIA, orthostatic hypotension, and postprandial syncope. With nausea, vomiting, dizziness, and palpitation w/o change of position or coughing/BM/urination. CT head showed prominence of the ventricles and cerebral sulci which is increased since 2013 without acute changes. pt already received 81mg aspirin prior to hospital arrival, another 243mg aspirin ordered for today(to make 324mg total today) with 162mg aspirin daily.20mg atorvastatin daily. Echo, CTA head and neck, tele, EEG, prolactin, and orthostatic vitals ordered. Bedrest with fall/ seizure/aspiration precaution. Vital and neuro checks Q4H. 2. CAD, hx of inferior wall OR. Saw JOE in the past, it was noted that patient declined cardiology f/u testing, pt reported last appt 2 years ago. Cardiac cath 06/2016 at [facility] showed chronically occluded RCA, 50% LAD and distal LAD(non- occlusive stenosis). Chronic chest pain and intermittent palpitation for years per patient. Pt's cardiac marker within normal range upon admission. Repeat cardiac marker, pt on tele for syncope. Increased Aspirin to 162mg QD. Start atorvastatin 3. AAA. Infrarenal AAA 4.[address] abd/pelvis. 3.6cm in 11/2018. Consider consult vascular surgeon in AM. 4. GERD. Cont home med Famotidine and Prilosec 5. HTN. BP roughly stable 145/63. Stop home med Amlodipine as patient was running bradycardia initially upon ER arrivial. Start Lisinopril for BP control. 6. Anemia, iron deficiency. Hg stable compared to prior. Cont home med ferrous sulfate. Iron studies and occult blood ordered. 7. BPH. Cont home med Finasteride and Tamsulosin for now 8. Possible Meniere's disease. Left ear hearing loss, left ear ache, vertigo, with family hx of similar symptom. Cont home med Meclizine. 1800ml fluid restriction for now 9. Hyperlipidemia. Not on statin at home. Start statin at this time d/t r/o CVA and hx of CAD 10. COPD, mild exacerbation. Low PaO2 Pt not on med at home. Start duoneb with albuterol PRN, PO steroid, and PPI. Oxygen therapy to keep oxygen% b/w 88-92% Cont pulse ox, resp panel with covid test 11. Tobacco use disorder. Pt reported 63 years of tobacco use. Tobacco cessation counseling ordered. 12. Bradytachycardia. HR down to 50 with 8 runs of V tach on EKG. Pt will be on tele at this time. D/C amlodipine. BP currently stable DVT prophylaxis: SCD, TEDS, lovenox GI prophylaxis: pt on home prilosec and famotidine Plan / VTE VTE Prophylaxis Ordered?: Yes Plan Diet: Continue Current Activity: Bedrest Therapy: PT, OT Diagnostics: Check Labs, Repeat Labs in AM, Ultrasound, KIRSTEN, Other Diagnostics GME ATTESTATION GME ATTESTATION My faculty preceptor for this patient encounter was physically present during the encounter and was fully available. All aspects of the patient interview, examination, medical decision making process, and medical care plan development were reviewed and approved by the faculty preceptor. The faculty preceptor is aware and concurs with the plan as stated in the body of this note and will attest to such by his/her cosignature. ATTENDING NOTE reviewed the note and agree with the findings as documented pls see my progress note from 03/23/20 for additional details LEIA SHARP DO Mar 23, 2020 23:24 JASIEL TA MD Mar 25, 2020 06:26
[2020-03-23] MEDS ORDERED: MECLIZINE 25 MG TABLET PO PRN (23:30)
[2020-03-24] VITALS (7 sets, daily range): BP systolic 129–187; BP diastolic 67–81
[2020-03-24] MEDS ORDERED: ASPIRIN 81 MG CHEW TABLET PO ONE
[2020-03-24] MEDS: ATORVASTATIN 20 MG TAB PO SCH ×2 (00:27→20:17)
[2020-03-24] MEDS ORDERED: COMBIVENT RESPIMAT 100-20MCG INHALER 4GM INH PRN (01:00)
[2020-03-24 01:21] LABS: CK-MB VALUE MASS 1.6 NG/ML (<3.6); CPK CREATINE PHOSPHOKINASE 44 U/L (39-308); MB/CK RELATIVE INDEX 3.64 (< OR =4); TROPONIN I < 0.02 NG/ML (< 0.10)
[2020-03-24] MEDS ORDERED: SLF 3 ML SYR IV PRN (01:30)
[2020-03-24 01:44] LABS: FERRITIN 55 NG/ML (26-388); IRON (FE) 67 UG/DL (65-175); NT-PRO BNP 738 PG/ML (<450); PERCENT SATURATION 22.3 % (19.7-50.0); TOTAL IRON BINDING CAPACITY 300 UG/DL (250-450)
[2020-03-24 04:48] LABS: HEMATOCRIT 37.1 % (42.0-52.0); HEMOGLOBIN 12.3 g/dl (13.5-17.5); MEAN CORPUSCULAR HEMOGLOBIN 29.2 pg (27.0-33.0); MEAN CORPUSCULAR HGB CONC 33.2 g/dl (32.0-36.5); MEAN CORPUSCULAR VOLUME 88.1 fl (80.0-96.0); PLATELET COUNT, AUTOMATED 243 10^3/uL (150-450); RED BLOOD COUNT 4.21 10^6/uL (4.30-6.10); WHITE BLOOD COUNT 7.1 10^3/uL (4.0-10.0)
[2020-03-24] MEDS: SLF 3 ML SYR IV SCH ×3 (05:39→20:22)
[2020-03-24 05:41] LABS: BLOOD UREA NITROGEN 25 MG/DL (7-18); CALCIUM LEVEL 8.7 MG/DL (8.8-10.2); CARBON DIOXIDE LEVEL 28 MEQ/L (21-32); CHLORIDE LEVEL 108 MEQ/L (98-107); CK-MB VALUE MASS 1.5 NG/ML (<3.6); CPK CREATINE PHOSPHOKINASE 45 U/L (39-308); CREATININE FOR GFR 1.55 MG/DL (0.70-1.30); GLOMERULAR FILTRATION RATE 46.5 (>42); GLUCOSE, FASTING 103 MG/DL (70-100); MB/CK RELATIVE INDEX 3.33 (< OR =4); POTASSIUM SERUM 4.3 MEQ/L (3.5-5.1); SODIUM LEVEL 143 MEQ/L (136-145); TROPONIN I < 0.02 NG/ML (< 0.10)
[2020-03-24] MEDS ORDERED: ALBUTEROL 90 MCG/ACT 8GM HFA INHALER INH PRN (06:00)
[2020-03-24] MEDS: NS 1,000 ML IV SCH ×2 (07:39→20:17)
[2020-03-24] MEDS ORDERED: ASPIRIN 81 MG ENTERIC TAB PO SCH (09:00)
[2020-03-24] MEDS ORDERED: amLODIPine 10 MG TAB PO SCH (09:00)
[2020-03-24] MEDS ORDERED: predniSONE 20 MG TAB PO SCH (09:00)
[2020-03-24] MEDS ORDERED: lisinopriL 5 MG TAB PO SCH (09:00)
--- NOTE | 2020-03-24 09:14 | REPVR ---
PROCEDURE INFORMATION: Exam: MR Head Without Contrast Exam date and time: 03/24/2020 7:03 AM Age: 79 years old Clinical indication: Syncope and collapse; Additional info: Syncope, R/O TIA TECHNIQUE: Imaging protocol: MR of the head without contrast. COMPARISON: MRI-Brain without Contrast 01/16/2018 10:09 AM FINDINGS: Brain: There is no extra-axial collection or intra-axial mass. Mild to moderate diffuse volume loss is within the range of normal for patient age. There are foci of increased T2 and FLAIR signal within the periventricular and subcortical white matter and substance of the jonathan. There is no diffusion restriction. Vasculature: There is loss of the normal left internal carotid artery flow void, worrisome for flow-limiting stenosis/occlusion. This appears unchanged as compared to preceding examination. Ventricles: Prominence of the ventricular system is commensurate with volume loss. Bones/joints: Unremarkable. Sinuses: There mild frontal, ethmoid and maxillary sinus mucosal thickening. Mastoid air cells: Normal as visualized. No mastoid effusion. Orbits: Unremarkable. Soft tissues: Unremarkable. IMPRESSION: 1. 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 MRI of the head and neck may be of benefit to further characterize as indicated. 2. Chronic changes. Electronically signed by: Padmaja Choe On 03/24/2020 09:14:43 AM
[2020-03-24] MEDS: TAMSULOSIN 0.4 MG CAP PO SCH (09:33)
[2020-03-24] MEDS: FERROUS SULFATE 325MG TAB PO SCH ×2 (09:33→20:17)
[2020-03-24] MEDS: FINASTERIDE 5 MG TAB PO SCH (09:33)
[2020-03-24] MEDS: ASPIRIN 81 MG CHEW TABLET PO SCH (09:33)
[2020-03-24] MEDS: FAMOTIDINE 20 MG TAB PO SCH (09:33)
[2020-03-24] MEDS: OMEPRAZOLE 20 MG CAP PO SCH (09:33)
[2020-03-24] MEDS: ENOXAPARIN 40MG/0.4ML SYRINGE (J1650 PER 10MG) SC SCH (09:34)
--- NOTE | 2020-03-24 11:14 | CR.PDOC ---
General Date of Consultation: Mar 24, [address] Chavez. REASON FOR CONSULTATION. AAA . HISTORY OF PRESENT ILLNESS: The pt is a 79 yo male admitted with syncopal episode. The pt had reported vertigo, nausea/vomiting/dizziness, syncopal episode. He reported the syncope happened as he was walking into his bedroom without any change of position, reported he was feeling more dizziness and the next thing he knew was that he was on the floor. Work up for admission included CTA A/P indicating AAA, Vascular surgery consult requested. The pt has known h/o AAA measuring 3.5cm last imaging 11/2018 ALLERGIES: Please see below. HOME MEDICATIONS: Please see below. Medical History CAD inferior wall [place](Saw CANNY in the past, declined cardio f/u testing) Chronically occluded RCA, 50% LAD and distal LAD(non-occlusive stenosis) Hyperlipidemia RSD right hand TIA Hypertension Impaired fasting glucose ED GERD COPD Depression Hyperplastic colon polyp Asbestos exposure BPH C. diff colitis AAA 3.5cm 11/2018 B/l lung nodules AVM, cecum 06/14 Gastritis/duodenitis Iron deficiency anemia Surgical History Cardiac cath 06/2016 Colonoscopy EGD SOCIAL HISTORY: current smoker. REVIEW OF SYSTEMS: As noted in HPI otherwise 11 Pt ROS unremarkable. PHYSICAL EXAMINATION: VITAL SIGNS: Please see below. GENERAL APPEARANCE: NAD. ABDOMEN: . EXTREMITIES: no edema. NEUROLOGICAL: no focal deficits. PSYCHIATRIC: A/O x 3. LABORATORY DATA: Please see below. CTA A/P Infrarenal abdominal aortic aneurysm measuring 4.1 x 3.8 cm without evidence of rupture or dissection. It has enlarged in comparison to the 12/11/2018 CT at which time it measured 3.6 cm AP. Electronically signed by: Kimi Pacheco On 03/23/2020 20:27:07 PM ASSESSMENT/PLAN: 1. AAA. The pt's CTA imaging is reviewed as per Dr Chavez. Maximal AP diameter 4.0cm. No intervention necessary at this time. Would recommend Non con CT A/P 6 mo for surveillance with FU with Vascular surgery to review results. This is reviewed and discussed with the pt as per Dr Chavez. Vital Signs/I&O Vital Signs Date Time Temp Pulse Resp B/P (MAP) Pulse Ox O2 Delivery O2 Flow Rate FiO2 03/24/20 08:00 97.3 56 19 162/74 (103) 90 Room Air 03/24/20 04:00 2.0 Laboratory Data Labs 24H Laboratory Tests 2 03/23/20 18:22: Immature Granulocyte % (Auto) 0.2, Neutrophils (%) (Auto) 69.8H, Lymphocytes (%) (Auto) 19.5L, Monocytes (%) (Auto) 8.4H, Eosinophils (%) (Auto) 1.2, Basophils (%) (Auto) 0.9, Neutrophils # (Auto) 4.1, Lymphocytes # (Auto) 1.1L, Monocytes # (Auto) 0.5, Eosinophils # (Auto) 0.1, Basophils # (Auto) 0.1, Nucleated Red Blood Cells % (auto) 0.0, Prothrombin Time 13.9, Prothromb Time International Ratio 1.05, Anion Gap 7L, Glomerular Filtration Rate 55.0, Calcium Level 8.7L, Magnesium Level 2.1, Total Creatine Kinase 31L, Creatine Kinase MB 1.2, Creatine Kinase MB Relative Index 3.87, Troponin I < 0.02, Thyroid Stimulating Hormone (TSH) 1.570, Ethyl Alcohol Level < 0.003 03/23/20 18:47: Blood Gas Bicarbonate Standard 21.9L, Arterial Blood pH 7.330L, Arterial Blood Partial Pressure CO2 44.8, Arterial Blood Partial Pressure O2 64.9L, Arterial Blood Total CO2 24.5, Arterial Blood HCO3 23.1, Arterial Blood Base Excess - 2.9L, Arterial Blood Oxygen Saturation 92.3L, Arterial Blood Gas Puncture Site RT RADIAL 03/24/20 00:50: Total Creatine Kinase 44, Creatine Kinase MB 1.6, Creatine Kinase MB Relative Index 3.64, Troponin I < 0.02, Iron Level 67, Total Iron Binding Capacity 300, Transferrin % Saturation 22.3, Ferritin 55, IO-Ckk-S-Type Natriuretic Peptide 738H 03/24/20 04:40: Nucleated Red Blood Cells % (auto) 0.0, Anion Gap 7L, Glomerular Filtration Rate 46.5, Calcium Level 8.7L, Total Creatine Kinase 45, Creatine Kinase MB 1.5, Creatine Kinase MB Relative Index 3.33, Troponin I < 0.02 CBC/BMP Laboratory Tests 03/23/20 18:22 03/24/20 04:40 Allergies Coded Allergies: meperidine (Verified Adverse Reaction, Intermediate, VOMITS AND HEADACHE, 01/01/19) Home Medications Scheduled Amlodipine Besylate (Amlodipine Besylate) 10 Mg Tablet, 10 MG PO DAILY, (Reported) Aspirin (Aspirin EC) 81 Mg Tab, 81 MG PO DAILY, (Reported) Famotidine (Famotidine) 40 Mg Tablet, 40 MG PO DAILY, (Reported) Ferrous Sulfate (Ferrous Sulfate) 325 Mg Tablet, 325 MG PO BID, (Reported) Finasteride (Finasteride) 5 Mg Tablet, 5 MG PO DAILY, (Reported) Omeprazole (Omeprazole) 20 Mg Capsule.dr, 20 MG PO DAILY, (Reported) Tamsulosin Hcl (Tamsulosin HCl) 0.4 Mg Capsule, 0.4 MG PO DAILY, (Reported) Scheduled PRN Hydrocodone/Acetaminophen ([place] 10-325 Tablet) 1 Each Tablet, 1 TAB PO Q4H PRN for PAIN, (Reported) Meclizine HCl (Meclizine HCl) 25 Mg Tablet, 25 MG PO Q8H PRN for VERTIGO/DIZZINESS, (Reported) Christiana Bauman Mar 24, 2020 11:14
[2020-03-24] MEDS: COMBIVENT RESPIMAT 100-20MCG INHALER 4GM INH SCH ×2 (13:31→20:30)
--- NOTE | 2020-03-24 14:40 | IPNPDOC ---
Date Seen The patient was seen on 03/24/20. Progress Note Patient seen and examined. We are consulted for asymptomatic nonruptured infrarenal AAA. The patient is unaware he had an aneurysm. We went over the natural history of abdominal aortic aneurysms, the need for surveillance imaging, the indications for intervention, and he expressed understanding. At this time, with 4 cm diameter of the aneurysm, no intervention is required. Would like to see the patient back in clinic in 6 months with a noncontrast CT scan to follow-up the aneurysm. He is agreeable to this plan. We appreciate the opportunity to per to speak the care of this patient. VS, I&O, 24H, Fishbone Vital Signs/I&O Vital Signs Date Time Temp Pulse Resp B/P (MAP) Pulse Ox O2 Delivery O2 Flow Rate FiO2 03/24/20 12:00 97.3 66 18 144/81 (102) 91 Room Air 03/24/20 04:00 2.0 Laboratory Data 24H LABS Laboratory Tests 2 03/23/20 18:22: Immature Granulocyte % (Auto) 0.2, Neutrophils (%) (Auto) 69.8H, Lymphocytes (%) (Auto) 19.5L, Monocytes (%) (Auto) 8.4H, Eosinophils (%) (Auto) 1.2, Basophils (%) (Auto) 0.9, Neutrophils # (Auto) 4.1, Lymphocytes # (Auto) 1.1L, Monocytes # (Auto) 0.5, Eosinophils # (Auto) 0.1, Basophils # (Auto) 0.1, Nucleated Red Blood Cells % (auto) 0.0, Prothrombin Time 13.9, Prothromb Time International Ratio 1.05, Anion Gap 7L, Glomerular Filtration Rate 55.0, Calcium Level 8.7L, Magnesium Level 2.1, Total Creatine Kinase 31L, Creatine Kinase MB 1.2, Creatine Kinase MB Relative Index 3.87, Troponin I < 0.02, Thyroid Stimulating Hormone (TSH) 1.570, Ethyl Alcohol Level < 0.003 03/23/20 18:47: Blood Gas Bicarbonate Standard 21.9L, Arterial Blood pH 7.330L, Arterial Blood Partial Pressure CO2 44.8, Arterial Blood Partial Pressure O2 64.9L, Arterial Blood Total CO2 24.5, Arterial Blood HCO3 23.1, Arterial Blood Base Excess - 2.9L, Arterial Blood Oxygen Saturation 92.3L, Arterial Blood Gas Puncture Site RT RADIAL 03/24/20 00:50: Total Creatine Kinase 44, Creatine Kinase MB 1.6, Creatine Kinase MB Relative Index 3.64, Troponin I < 0.02, Iron Level 67, Total Iron Binding Capacity 300, Transferrin % Saturation 22.3, Ferritin 55, UL-Nep-N-Type Natriuretic Peptide 738H 03/24/20 04:40: Nucleated Red Blood Cells % (auto) 0.0, Anion Gap 7L, Glomerular Filtration Rate 46.5, Calcium Level 8.7L, Total Creatine Kinase 45, Creatine Kinase MB 1.5, Creatine Kinase MB Relative Index 3.33, Troponin I < 0.02 CBC/BMP Laboratory Tests 03/23/20 18:22 03/24/20 04:40 YELITZA ROSARIO MD Mar 24, 2020 14:40
--- NOTE | 2020-03-24 16:09 | IPNPDOC ---
Text Note Date of Service The patient was seen on 03/24/20. NOTE Subjective: Patient admitted overnight for witnessed syncopal event and 3 week history of dizziness and 1 day hx of N/V. He states his family caught him as he fell, but he is complaining of neck pain, shoulder, knee, and low back pain today. He currently denies any fever, chills, chest pain, difficulty breathing, nausea, or vomiting. He does admit to mild dizziness presently. Objective: General: Pleasant, well appearing male in NAD HEENT: NC, AT. EOMI, no scleral icterus. No pharyngeal erythema, mucous membranes moist. Neck: No lymphadenopathy or JVD CV: RRR, Normal S1 and S2. No murmurs, gallops, or rubs. Resp: CTAB with full breath sounds. No wheezes, crackles, or rhonchi. No dullness to percussion. Abdomen: Bowel sounds present. Soft, NT, ND. Extremities: No swelling or edema. MSK: No visible signs of trauma/bruising. Range of motion intact through upper and lower extremities. Assessment/Plan: 79 yo male with PMH of inferior wall AL, HTN, TIA, HTN, AAA, and COPD admitted to [facility] for witnessed syncopal event and 3 week history of N/V, chronic dizziness, and hx of palpitations. DDX includes arrhythmia, structual heart disease, vasovagal syncope, meniere's disease, BPPV, seizure, TIA, orthoststic hypotension, postprandial syncope, #. Syncope of unclear etiology -Brain MRI, CT head negative for acute findings. CTA head/neck not completed. -EEG done, result pending. No prolactin resulted. -Echo pending, no arrhythmias on monitor overnight. -Orthostatic vital signs ordered, but not done, will reorder. -Continue with fall precautions. - Will start IV fluid hydration #. BG -Possibly 2/2 3-week history of vomiting, IVF started. #. AAA -Vascular surgery consulted, recommendations appreciated. -They recommend 6 month f/u for surveillance with non-contrast CT and f/u at their office. No indication for surgery at this time. #. CAD, hx of AL - Cardiac cath from 06/2016 showing occluded RCA, 50% stenosis of LAD and distal LAD. - Cardiac markers negative. - Continue Atorvastatin, ASA for secondary prevention #. GERD. -Continue Famotidine, Prilosec #. HTN Continue Lisinopril #. Iron deficiency Anemia -Cont home med ferrous sulfate. Iron studies at low end of normal. #. BPH. Continue Finasteride and Tamsulosin #. Possible Meniere's disease. -Left ear hearing loss, left ear ache, vertigo, with family hx of similar symptom. -Continue Meclizine. 1800ml fluid restriction for now -PT/OT ordered for same. #. Hyperlipidemia. -Continue statin #. COPD -No wheezing on exam today, dc prednisone -Continue albuterol inhalers -O2 88-92% #. Tobacco use disorder. -Uninterested in quitting at this time. -Uninterested in nicotine replacement therapy. #. Bradycardia -If patient becomes symptomatic of HR<35 will consult cardiology and consider pacing. Continue to monitor. #. NSVT - Continue to monitor, if sustained Vtach will consult cardiology DVT prophylaxis: SCD, TEDS, lovenox GI prophylaxis: Continue prilosec, famotidine VS,Fishbone, I+O VS, Fishbone, I+O Laboratory Tests 03/23/20 18:22 03/24/20 04:40 Vital Signs Date Time Temp Pulse Resp B/P (MAP) Pulse Ox O2 Delivery O2 Flow Rate FiO2 03/24/20 12:00 97.3 66 18 144/81 (102) 91 Room Air 03/24/20 04:00 2.0 GME ATTESTATION GME ATTESTATION My faculty preceptor for this patient encounter was physically present during the encounter and was fully available. All aspects of the patient interview, examination, medical decision making process, and medical care plan development were reviewed and approved by the faculty preceptor. The faculty preceptor is aware and concurs with the plan as stated in the body of this note and will attest to such by his/her cosignature. ATTENDING NOTE I, Can Culp, have independently examined this patient and performed my own physical exam, as well as reviewed the documentation and edited where necessary. I have discussed in detail with the resident / student the findings and plan of treatment as documented by the resident / student and edited their note. I agree with their findings and treatment plan and have edited their documentation. I will continue to follow the patient during this hospital stay. KOMAL LAKHANI DO Mar 24, 2020 16:09 CAN CULP MD Mar 24, 2020 20:02
[2020-03-25] VITALS: BP 168/77
[2020-03-25] MEDS: COMBIVENT RESPIMAT 100-20MCG INHALER 4GM INH SCH ×3 (01:41→13:38)
[2020-03-25 04:00] VITALS: BP 177/74
[2020-03-25] MEDS: SLF 3 ML SYR IV SCH (04:53)
[2020-03-25 06:24] LABS: HEMATOCRIT 34.8 % (42.0-52.0); HEMOGLOBIN 11.4 g/dl (13.5-17.5); MEAN CORPUSCULAR HGB CONC 32.8 g/dl (32.0-36.5); MEAN CORPUSCULAR VOLUME 88.5 fl (80.0-96.0); PLATELET COUNT, AUTOMATED 225 10^3/uL (150-450); RED BLOOD COUNT 3.93 10^6/uL (4.30-6.10); WHITE BLOOD COUNT 13.8 10^3/uL (4.0-10.0)
[2020-03-25 06:56] LABS: CALCIUM LEVEL 8.9 MG/DL (8.8-10.2); CREATININE FOR GFR 1.28 MG/DL (0.70-1.30); POTASSIUM SERUM 4.5 MEQ/L (3.5-5.1)
[2020-03-25] MEDS ORDERED: ISOVUE-370 76% 100ML VIAL As Ordered ONE (07:40)
[2020-03-25 08:00] VITALS: BP 170/73
--- NOTE | 2020-03-25 08:56 | REPVR ---
PROCEDURE INFORMATION: Exam: CT Angiography Neck With Contrast Exam date and time: 03/25/2020 8:04 AM Age: 79 years old Clinical indication: Syncope and collapse TECHNIQUE: Imaging protocol: Computed tomography angiography of the neck with intravenous contrast. 3D rendering (Not supervised by radiologist): MIP and/or 3D reconstructed images were created by the technologist. Radiation optimization: All CT scans at this facility use at least one of these dose optimization techniques: automated exposure control; mA and/or kV adjustment per patient size (includes targeted exams where dose is matched to clinical indication); or iterative reconstruction. Contrast material: ISOVUE 370; Contrast volume: 100 ml; Contrast route: INTRAVENOUS (IV); COMPARISON: No relevant prior studies available. FINDINGS: Limitations: Examination is limited by motion artifact. Right common carotid artery: Diffuse irregular atherosclerotic plaque in the right common carotid artery. Diffuse less than 50% stenosis of the right CCA. Right internal carotid artery: Moderate atherosclerotic calcification at the origin of the right internal carotid artery. Less than 50% focal stenosis of the origin of the right ICA. Less than 50% focal stenosis of the mid right ICA. Tortuous right ICA. Right external carotid artery: No occlusion or stenosis of the origin. Right vertebral artery: No stenosis. No dissection or occlusion. Left common carotid artery: Diffuse irregular atherosclerotic plaque in the left common carotid artery. 70% diffuse stenosis of the left CCA. Left internal carotid artery: Moderate atherosclerotic calcification at the origin of the left internal carotid artery. Occlusion of the left internal carotid artery. Left external carotid artery: Severe focal stenosis of the origin of the left ECA. Left vertebral artery: No stenosis. No dissection or occlusion. Aorta: Moderate atherosclerotic calcification of the aortic arch. Sinuses: Small fluid in the right maxillary sinus. Mucosal thickening in the left maxillary sinus. Patchy ethmoid sinus disease. Trachea: Small mucous in the trachea. Dental: Patient is nearly edentulous. Bones/joints: Mild degenerative spine. No acute fracture. Soft tissues: Normal. Lungs: Centrilobular emphysematous lung disease. IMPRESSION: 1. Occlusion of the left internal carotid artery. 2. 70% diffuse stenosis of the left CCA. 3. Diffuse less than 50% stenosis of the distal right CCA. 4. Less than 50% focal stenosis of the origin of the right ICA. 5. Less than 50% focal stenosis of the mid right ICA. 6. Additional findings as described. REFERENCES: NASCET CRITERIA. The degree of internal carotid artery stenosis is based on NASCET criteria. Normal is no stenosis. Mild is less than 50% stenosis. Moderate is 50-69% stenosis. Severe is 70% to 99% stenosis. Total occlusion is no detectable patent lumen. Electronically signed by: Linda Napoles On 03/25/2020 08:55:30 AM
--- NOTE | 2020-03-25 09:07 | REPVR ---
PROCEDURE INFORMATION: Exam: CT Angiography Head With Contrast Exam date and time: 03/25/2020 8:04 AM Age: 79 years old Clinical indication: Syncope and collapse. Chronic left ICA occlusion. TECHNIQUE: Imaging protocol: Computed tomography angiography of the head with intravenous contrast. 3D rendering (Not supervised by radiologist): MIP and/or 3D reconstructed images were created by the technologist. Radiation optimization: All CT scans at this facility use at least one of these dose optimization techniques: automated exposure control; mA and/or kV adjustment per patient size (includes targeted exams where dose is matched to clinical indication); or iterative reconstruction. Contrast material: ISOVUE 370; Contrast volume: 100 ml; Contrast route: INTRAVENOUS (IV); COMPARISON: CT Head without contrast 03/23/2020 7:24 PM FINDINGS: ANTERIOR CIRCULATION: Right internal carotid artery: Atherosclerotic calcification of the right carotid siphon. No occlusion or significant stenosis. No aneurysm. Right middle cerebral artery: Unremarkable. No occlusion or significant stenosis. No aneurysm. Right anterior cerebral artery: Unremarkable. No occlusion or significant stenosis. No aneurysm. Left internal carotid artery: Atherosclerotic calcification of the left carotid siphon. Occlusion of the left internal carotid artery. There is reconstitution of terminus of the left ICA. Left middle cerebral artery: Unremarkable. No occlusion or significant stenosis. No aneurysm. Left MCA appears to be primarily fed by the left PCOM. Left anterior cerebral artery: Left A1 segment is hypoplastic. Left A2 segment is patent. No aneurysm. POSTERIOR CIRCULATION: Right vertebral artery: Unremarkable. No occlusion or significant stenosis. No aneurysm. Left vertebral artery: Unremarkable. No occlusion or significant stenosis. No aneurysm. Basilar artery: Unremarkable. No occlusion or significant stenosis. No aneurysm. Right posterior cerebral artery: Right P1 segment is hypoplastic. Incidental origin of the right [employer]GER. Left posterior cerebral artery: Unremarkable. No occlusion or significant stenosis. No aneurysm. Left posterior communicating artery: Left PCOM is patent. Paranasal sinuses: Small fluid in the right maxillary sinus. Minimal mucosal thickening left maxillary sinus. Patchy ethmoid sinus disease. IMPRESSION: 1. Occlusion of the left internal carotid artery. Unchanged from prior. 2. There is reconstitution of the terminus of the left ICA. 3. Additional findings as described. COMMENTS: Verbally discussed with Dr. Sofia at 03/25/2020 9:05 AM EDT. Electronically signed by: Linda Napoles On 03/25/2020 09:06:38 AM
[2020-03-25] MEDS: FAMOTIDINE 20 MG TAB PO SCH (10:09)
[2020-03-25] MEDS: ASPIRIN 81 MG CHEW TABLET PO SCH (10:09)
[2020-03-25] MEDS: FERROUS SULFATE 325MG TAB PO SCH (10:09)
[2020-03-25] MEDS: FINASTERIDE 5 MG TAB PO SCH (10:09)
[2020-03-25] MEDS: OMEPRAZOLE 20 MG CAP PO SCH (10:09)
[2020-03-25] MEDS: TAMSULOSIN 0.4 MG CAP PO SCH (10:09)
[2020-03-25] MEDS: ENOXAPARIN 40MG/0.4ML SYRINGE (J1650 PER 10MG) SC SCH (10:10)
--- NOTE | 2020-03-25 10:18 | IPNPDOC ---
Text Note Date of Service The patient was seen on 03/25/20. NOTE Vascular Surgery Dr [place]. The pt is a 79 yo male admitted with syncopal episode. The pt had reported vertigo, nausea/vomiting/dizziness, syncopal episode. He reported the syncope happened as he was walking into his bedroom without any change of position, reported he was feeling more dizziness and the next thing he knew was that he was on the floor. Work up for admission included CTA A/P indicating AAA, Vascular surgery consult was requested. The pt's CTA imaging was reviewed as per Dr Chavez. Maximal AP diameter 4.0cm. No intervention necessary at this time. Would recommend Non con CT A/P 6 mo for surveillance with FU with Vascular surgery to review resu lts. The pt also subsequently had CTA neck 03/25/20 for evaluation of syncope, indicating occlusion of the left ICA. 70% diffuse stenosis of the left CCA. Diffuse less than 50% stenosis of the distal right CCA. Less than 50% focal stenosis of the origin of the right ICA. Less than 50% focal stenosis of the mid right ICA. Vertebrals with no occlusion or stenosis. I do not see any prior comparison studies for review, I do not see a previous carotid US for review. Will discuss and review imaging with Dr Chavez. VS,bAhijit, I+O VS, Abhijit, I+O Laboratory Tests 03/25/20 05:50 Vital Signs Date Time Temp Pulse Resp B/P (MAP) Pulse Ox O2 Delivery O2 Flow Rate FiO2 03/25/20 08:00 97.8 64 18 170/73 (105) 93 Room Air 03/24/20 04:00 2.0 I&O- Last 24 Hours up to 6 AM 03/25/20 05:59 Intake Total 620 ml Output Total 300 ml Balance 320 ml Christiana Bauman Mar 25, 2020 10:18
--- NOTE | 2020-03-25 10:55 | IPNPDOC ---
Date Seen The patient was seen on 03/25/20. Progress Note CTA neck reviewed at request of hospitalist team. Chronic occlusion L ICA- no intervention indicated. ARCADIO no significant stenosis. Would recommend carotid duplex- not urgent- to establish baseline for ARCADIO for future surveillance imaging. We appreciate the opportunity to participate in the care of this patient. VS, I&O, 24H, Fishbone Vital Signs/I&O Vital Signs Date Time Temp Pulse Resp B/P (MAP) Pulse Ox O2 Delivery O2 Flow Rate FiO2 03/25/20 08:00 97.8 64 18 170/73 (105) 93 Room Air 03/24/20 04:00 2.0 I&O- Last 24 Hours up to 6 AM 03/25/20 05:59 Intake Total 620 ml Output Total 300 ml Balance 320 ml Laboratory Data 24H LABS Laboratory Tests 2 03/25/20 05:50: Nucleated Red Blood Cells % (auto) 0.0, Anion Gap 7L, Glomerular Filtration Rate 58.0, Calcium Level 8.9 CBC/BMP Laboratory Tests 03/25/20 05:50 YELITZA ROSARIO MD Mar 25, 2020 10:55
[2020-03-25] MEDS ORDERED: ATOR1TAB21 PO (13:36)
--- NOTE | 2020-03-25 13:57 | DS.PDOC ---
Discharge Summary General Date of Admission Mar 23, 2020 at 21:58 Date of Discharge 03/25/2020 Primary Care Physician: Arsenio Quiroz MD Attending Physician: CAN CULP MD Discharge Summary PROCEDURES PERFORMED DURING STAY: TTE showing normal regional LV wall motion and wall thickening. LVEF 60%. Normal LV diastolic function for age. Suggestive of mild-moderate elevation of estimated Right ventricular systolic pressure. Very mild TR. Normal R-ventricle size and systolic function. Mild AV sclerosis of 3 cuspid AV. No AR. Mild mitral annular calcification, trace MR. Normal left atrial volume index. No pericardial effusion. ADMITTING/DISCHARGE DIAGNOSES: 1. Syncope 2. Acute renal failure 3. AAA 4. Occluded L-ICA 5. Stenotic R-ICA 6. CAD 7. Hx of ME 8. GERD 9. iron deficiency anemia 10. hyperlipidemia 11. COPD 12. Tobacco use disorder 13. HTN 14. BPH COMPLICATIONS/CHIEF COMPLAINT: Syncope And Collapse. HISTORY OF PRESENT ILLNESS/HOSPITAL COURSE: Patient is a 79 yo male with PMH of TIA, CAD, HTN, and COPD presented to [facility] today due to 2 weeks of vertigo, 1 day of nausea/vomiting/dizziness, and witnessed syncope lasted 15 min which happened at 5PM on 03/23/2020. He reported the syncope happened as he was walking into his bedroom without any change of position, reported he was feeling more dizziness and the next thing he knew was that he was on the floor. He reported his daughter said he lost consciousness for about 15 min, and stated that he felt confused for about an hour although during that period of time he was A&OX3. No involuntary limb/head movement but he was told there were foaming in his mouth. No prior syncope history, and no personal or family history of seizure. Reported left ear achiness and decreased left ear hearing without tinnitus, and reported his father also has similar problem(ear ache, hearing loss, vertigo). Reported chronic history of persistent chest pain in left epigastric region and intermittent palpitation for years. He had seen on site coordinator in [place] with last visit reported 2 years ago. Reported the chest pain is constant 4/10 dull pain and reproducible, aggravated by pressure and lifting objects and alleviated by not lifting objected. Reported intermittent palpitation for years. Reported history of chronic intermittent dyspnea for years while exercising/walking only, aggravated with activity and alleviated with resting and laying down. Patient was admitted to the hospital and a battery of tests were ordered and patient was started on atorvastatin and given full dose aspirin. She was started on IVF for mild BG on CKD. MRI ordered and was negative, CT angio abd/pelvis showing enlarged infrarenal AAA and CTA head/neck showing occluded L-ICA with stenotic R-ICA. Vascular surgery was consulted for same and recommended 6 month follow-up imaging on AAA and no indication for surgery on L ICA. Recommended carotid duplex of R-ICA. His BG improved and he began PT with improvement. On hospital day 2 he noted his N/V and dizziness were totally resolved and he had cleared PT with recommendations for discharge home with services. DISCHARGE MEDICATIONS: Please see below. ALLERGIES: Please see below. PHYSICAL EXAMINATION ON DISCHARGE: VITAL SIGNS: Please see below. General: Pleasant, well appearing male in NAD HEENT: NC, AT. EOMI, no scleral icterus. No pharyngeal erythema, mucous membranes moist. Neck: No lymphadenopathy or JVD CV: RRR, Normal S1 and S2. No murmurs, gallops, or rubs. Resp: CTAB with full breath sounds. No wheezes, crackles, or rhonchi. No dullness to percussion. Abdomen: Bowel sounds present. Soft, NT, ND. Extremities: No swelling or edema. MSK: No visible signs of trauma/bruising. Range of motion intact through upper and lower extremities. Skin: No rashes or skin changes Neuro: AOx3, CN II-XII intact. Strength +5/5 intact in bilateral UE and LE. LABORATORY DATA: Please see below. IMAGING: Head CT: Prominence of the ventricles and cerebral sulci which is increased since 2014. This may be the result moderate atrophy. Communicating type hydrocephalus can give an identical appearance and clinical correlation would be important. CXR: No acute findings CT angio abd/pelvis: Infrarenal abdominal aortic aneurysm measuring 4.1 x 3.8 cm without evidence of rupture or dissection. It has enlarged in comparison to the 12/11/2018 CT at which time it measured 3.6 cm AP. Brain MRI: 1. 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 MRI of the head and neck may be of benefit to further characterize as indicated. 2. Chronic changes. CTA head: 1. Occlusion of the left internal carotid artery. Unchanged from prior. 2. There is reconstitution of the terminus of the left ICA. 3. Additional findings as described. Neck CTA: 1. Occlusion of the left internal carotid artery. 2. 70% diffuse stenosis of the left CCA. 3. Diffuse less than 50% stenosis of the distal right CCA. 4. <50% focal stenosis of the origin of the right ICA. 5. < 50% focal stenosis of the mid right ICA. 6. Additional findings as described PROGNOSIS: fair ACTIVITY: with walker DIET: As tolerated DISCHARGE PLAN: home with services DISCHARGE INSTRUCTIONS: 1. Please f/u with Dr. Quiroz on 03/30/2020 2. Please comply with treatment plan and medications and return to the ER if you experience any problems. ITEMS TO FOLLOWUP ON ON OUTPATIENT: 1. Follow up carotid duplex of L-ICA outpatient 2. Follow up with CT Angio abd/pelvis for infrarenal AAA. DISCHARGE CONDITION: Stable. TIME SPENT ON DISCHARGE: Greater than 32 minutes. Vital Signs/I&Os Vital Signs Date Time Temp Pulse Resp B/P (MAP) Pulse Ox O2 Delivery O2 Flow Rate FiO2 03/25/20 08:00 97.8 64 18 170/73 (105) 93 Room Air 03/24/20 04:00 2.0 I&O- Last 24 Hours up to 6 AM 03/25/20 06:00 Intake Total 620 ml Output Total 300 ml Balance 320 ml Laboratory Data Labs 24H Laboratory Tests 2 03/25/20 05:50: Nucleated Red Blood Cells % (auto) 0.0, Anion Gap 7L, Glomerular Filtration Rate 58.0, Calcium Level 8.9 CBC/BMP Laboratory Tests 03/25/20 05:50 Discharge Medications Scheduled Amlodipine Besylate (Amlodipine Besylate) 10 Mg Tablet, 10 MG PO DAILY, (Reported) Aspirin (Aspirin EC) 81 Mg Tab, 81 MG PO DAILY, (Reported) Atorvastatin Calcium (Atorvastatin Calcium) 20 Mg Tablet, 20 MG PO QHS Famotidine (Famotidine) 40 Mg Tablet, 40 MG PO DAILY, (Reported) Ferrous Sulfate (Ferrous Sulfate) 325 Mg Tablet, 325 MG PO BID, (Reported) Finasteride (Finasteride) 5 Mg Tablet, 5 MG PO DAILY, (Reported) Omeprazole (Omeprazole) 20 Mg Capsule., 20 MG PO DAILY, (Reported) Tamsulosin Hcl (Tamsulosin HCl) 0.4 Mg Capsule, 0.4 MG PO DAILY, (Reported) Scheduled PRN Hydrocodone/Acetaminophen (Amboy 10-325 Tablet) 1 Each Tablet, 1 TAB PO Q4H PRN for PAIN, (Reported) Meclizine HCl (Meclizine HCl) 25 Mg Tablet, 25 MG PO Q8H PRN for VERTIGO/DIZZINESS, (Reported) Allergies Coded Allergies: meperidine (Verified Adverse Reaction, Intermediate, VOMITS AND HEADACHE, 01/01/19) GME ATTESTATION GME ATTESTATION My faculty preceptor for this patient encounter was physically present during the encounter and was fully available. All aspects of the patient interview, examination, medical decision making process, and medical care plan development were reviewed and approved by the faculty preceptor. The faculty preceptor is aware and concurs with the plan as stated in the body of this note and will attest to such by his/her cosignature. ATTENDING NOTE I, Can Culp, have independently examined this patient and performed my own physical exam, as well as reviewed the documentation and edited where necessary. I have discussed in detail with the resident / student the findings and plan of treatment as documented by the resident / student and edited their note. I agree with their findings and treatment plan and have edited their documentation. I will continue to follow the patient during this hospital stay. Time spent on discharge 35 minutes KOMAL LAKHANI DO Mar 25, 2020 13:56 CAN CULP MD Mar 25, 2020 17:03
--- NOTE | 2020-03-30 18:56 | REP ---
PORTABLE CHEST X-RAY: SINGLE VIEW HISTORY: Syncope/near syncope. COMPARISON: Chest x-ray 05/12/2019. FINDINGS: Monitoring electrodes overlie the chest. The lungs are symmetrically aerated and free of infiltrate. Pleural angles are sharp. Cardiomediastinal silhouette is unremarkable. Heart size is a little more prominent today than on the prior study. IMPRESSION: Borderline heart size. Otherwise no acute disease. MTDD
--- NOTE | 2020-04-10 07:31 | EEG ---
DATE OF STUDY: 03/24/2020 DIAGNOSIS: Syncope. EEG# [id number] REFERRING PHYSICIAN: Dr. Quita Garcia HISTORY: The patient is a 79-year-old man who was admitted to [facility] after a passing out spell. He developed vertigo two weeks ago. This EEG was done to rule out epileptic potential. He is currently taking Aspirin, Pepcid, Proscar, Omeprazole, Flomax, Lipitor, Amlodipine, Prednisone, Lisinopril. TECHNICAL DESCRIPTION: This baseline EEG was recorded by 21-scalp, ear, and two EKG electrodes and was reviewed in bipolar and referential montages following reformatting in 10-20 international electrode placement system. INTERPRETATION: Patient was noted to be in awake and drowsy states during this EEG. Resting and awake background rhythm consisted of well-formed posterior dominant rhythm with anterior-posterior gradient comprising of 9 Hz alpha activity measuring 15-40 microvolts in amplitude which was symmetric and reactive to eye opening. Attenuation of posterior dominant rhythm was seen during transition to drowsiness. No sleep was achieved. Hyperventilation could not be performed. Photic stimulation remained unremarkable. EKG revealed normal sinus rhythm. No focal, lateralizing, or epileptiform abnormalities were seen. No relevant clinical activity was noted. CONCLUSION: This EEG in awake and drowsy states is within normal limits. MTDD
--- NOTE | 2020-04-12 15:48 | ECGEPIP ---
[facility] - ED Test Date: 2020-03-23 Pat Name: JESS SIMS Department: Room: [place] [address] Gender: Male Wide Area Network Engineer: Cris PIRES : 1940 Requested By: GABINO GALLOWAY Order Number: [id number] Reading MD: Shasta Zayas Measurements Intervals Sherman Rate: 66 P: 24 LA: 141 QRS: 4 QRSD: 89 T: 53 QT: 412 QTc: 433 Interpretive Statements SINUS RHYTHM MODERATE ST DEPRESSION ABNORMAL ECG SEE SCANNED DOWNTIME REPORT
--- NOTE | 2020-05-06 13:25 | ECHO ---
DATE OF PROCEDURE: 03/24/2020 Age: 79 Gender: Male Height: 170 cm Weight: 69 kg REFERRING PHYSICIAN: Dr. Raysa Majano INDICATION: Syncope. MEASUREMENTS: 2D Measurements: Left ventricle diastole 5.4 cm Interventricular septum 0.99 cm Posterior wall 0.85 cm Left atrium 4.4 cm Aortic root 2.9 cm Left atrial volume index 21 Inferior vena cava 1.9 cm (more than 50% respiratory variation) Doppler Measurements: Aortic valve velocity 143 cm/s LVOT velocity 100 cm/s LVOT VTI 25.0 cm No aortic stenosis No aortic regurgitation Trace mitral regurgitation No mitral stenosis Mitral E velocity 74.0 cm/s Mitral A velocity 71.6 cm/s Very mild tricuspid regurgitation Estimated right ventricular systolic pressure 38-43 mmHg Estimated right atrial pressure 5-10 mmHg No pulmonic regurgitation Pulmonary artery systolic pressure 33 mmHg MITRAL ANNULAR TISSUE DOPPLER E prime septal 7.4 cm/s, E prime lateral 8.1 cm/s DESCRIPTION: Rhythm was sinus bradycardia. Image quality was fair. This was a 2D, M-mode, color flow Doppler, and pulsed wave Doppler examination including mitral annular tissue Doppler. CONCLUSIONS: * Normal left ventricle internal dimensions and wall thickness. Normal regional LV wall motion and wall thickening. LVEF 60% by visual estimate. Normal LV diastolic function for age. * Suggestive of mild-moderate elevation of estimated right ventricle systolic pressure. Very mild tricuspid regurgitation. Normal right ventricle size and systolic function. * Mild aortic valve sclerosis of a 3-cuspid aortic valve. No aortic regurgitation. * Mild mitral annular calcification. Trace mitral regurgitation. * Normal left atrial volume index. * No pericardial effusion. MTDD
== END 2020-03-25 14:10 | disposition home or self-care (01) | DRG 312 ==
LOC: EDBD 18:05 → M ED 18:05 → M ED INP 21:58 → ENRESERV 23:16 → M PCU 03-24 00:09
PROVIDERS: ADMIT Internal Medicine; ATTEND Internal Medicine
DX: R55 Syncope and collapse (principal); G90.511 Complex regional pain syndrome I of right upper limb; N17.9 Acute kidney failure, unspecified; I47.2 Ventricular tachycardia; J44.1 Chronic obstructive pulmonary disease with (acute) exacerbation; I12.9 Hypertensive chronic kidney disease with stage 1 through stage 4 chronic kidney disease, or unspecified chronic kidney disease; I25.10 Atherosclerotic heart disease of native coronary artery without angina pectoris; I25.2 Old myocardial infarction; E78.5 Hyperlipidemia, unspecified; R73.01 Impaired fasting glucose; N52.9 Male erectile dysfunction, unspecified; K21.9 Gastro-esophageal reflux disease without esophagitis; F32.9 Major depressive disorder, single episode, unspecified; N40.0 Benign prostatic hyperplasia without lower urinary tract symptoms; D50.9 Iron deficiency anemia, unspecified; R00.1 Bradycardia, unspecified; I71.4 Abdominal aortic aneurysm, without rupture; R11.2 Nausea with vomiting, unspecified; K29.80 Duodenitis without bleeding; H81.02 Meniere's disease, left ear; I65.23 Occlusion and stenosis of bilateral carotid arteries; N18.9 Chronic kidney disease, unspecified; F17.200 Nicotine dependence, unspecified, uncomplicated; Z86.010 Personal history of colon polyps; Z77.090 Contact with and (suspected) exposure to asbestos; Z86.73 Personal history of transient ischemic attack (TIA), and cerebral infarction without residual deficits; Z79.82 Long term (current) use of aspirin; Z79.899 Other long term (current) drug therapy; Z88.8 Allergy status to other drugs, medicaments and biological substances

== ENCOUNTER → 2020-05-10 | Outpatient (REF) | payer MEDICARE ==
[~2020-05-10] MED LIST changes: +ATOR1TAB21 PO; +FERR325T18 PO; +MECL1TAB31 PO; +NORC1TAB5 PO; +OMEP1CAP73 PO
[2020-05-10 13:01] LABS: HEMATOCRIT 38.2 % (42.0-52.0); HEMOGLOBIN 11.8 g/dl (13.5-17.5); MEAN CORPUSCULAR HEMOGLOBIN 27.7 pg (27.0-33.0); MEAN CORPUSCULAR HGB CONC 30.9 g/dl (32.0-36.5); MEAN CORPUSCULAR VOLUME 89.7 fl (80.0-96.0); PLATELET COUNT, AUTOMATED 249 10^3/uL (150-450); RED BLOOD COUNT 4.26 10^6/uL (4.30-6.10); WHITE BLOOD COUNT 9.2 10^3/uL (4.0-10.0)
[2020-05-10 13:30] LABS: ALBUMIN 3.7 GM/DL (3.2-5.2); BILIRUBIN,TOTAL 0.2 MG/DL (0.2-1.0); CALCIUM LEVEL 9.2 MG/DL (8.8-10.2); CHOLESTEROL RISK RATIO 4.051 (<5); CREATININE FOR GFR 1.36 MG/DL (0.70-1.30); POTASSIUM SERUM 4.3 MEQ/L (3.5-5.1)
== END ==
LOC: M SFHCADAM 08:34
PROVIDERS: ATTEND Family Medicine
DX: D50.9 Iron deficiency anemia, unspecified (principal); I25.10 Atherosclerotic heart disease of native coronary artery without angina pectoris; E78.2 Mixed hyperlipidemia; F17.210 Nicotine dependence, cigarettes, uncomplicated; Z12.5 Encounter for screening for malignant neoplasm of prostate; Z23 Encounter for immunization
CPT/HCPCS: 80053; 80061; 82728; 83550; 85027; 85046; 90682; 99406; G0008; G0103; G0463

== ENCOUNTER 2020-08-23 13:38 | Emergency (ER) | payer MEDICARE ==
[~2020-08-23] VITALS: Ht 167.6 cm; Wt 65.9 kg
[2020-08-23] MEDS ORDERED: ZOLO100T PO (13:54)
[2020-08-23] MEDS ORDERED: TIZA4TAB4 (13:54)
[2020-08-23] MEDS ORDERED: BUSP5TA PO (13:54)
[2020-08-23 14:55] LABS: BASO # 0.1 10^3/uL (0.0-0.2); BASO % 1.2 % (0.0-1.0); EOS # 0.4 10^3/uL (0.0-0.5); EOS % 4.7 % (0.0-3.0); HEMATOCRIT 36.5 % (42.0-52.0); HEMOGLOBIN 11.5 g/dl (13.5-17.5); LYMPH # 1.7 10^3/uL (1.5-5.0); LYMPH % 19.7 % (24.0-44.0); MEAN CORPUSCULAR HEMOGLOBIN 27.6 pg (27.0-33.0); MEAN CORPUSCULAR HGB CONC 31.5 g/dl (32.0-36.5); MEAN CORPUSCULAR VOLUME 87.7 fl (80.0-96.0); MONO # 0.9 10^3/uL (0.0-0.8); MONO % 10.1 % (0.0-5.0); NEUTROPHILS # 5.4 10^3/uL (1.5-8.5); NEUTROPHILS % 63.8 % (36.0-66.0); PLATELET COUNT, AUTOMATED 318 10^3/uL (150-450); RED BLOOD COUNT 4.16 10^6/uL (4.30-6.10); WHITE BLOOD COUNT 8.4 10^3/uL (4.0-10.0)
--- NOTE | 2020-08-23 15:15 | REP ---
INDICATION: CHEST PAIN. COMPARISON: Comparison chest x-ray March 23, 2020. TECHNIQUE: Portable upright AP chest radiograph. FINDINGS: The lungs are somewhat hyperinflated. No definite infiltrate is seen. Right hemidiaphragm is scalloped and slightly elevated as before. Monitoring electrodes are seen. The thoracic aorta is tortuous. Heart is not enlarged. There is diffuse osteopenia.. IMPRESSION: Hyperinflation. No definite infiltrate. Normal heart size.. <Electronically signed by Efren Blanco > 08/23/20 [id number]
[2020-08-23 15:19] LABS: ALBUMIN 3.5 GM/DL (3.2-5.2); ALT/SGPT 13 U/L (12-78); BILIRUBIN,DIRECT < 0.1 MG/DL (0.0-0.2); BILIRUBIN,TOTAL 0.1 MG/DL (0.2-1.0); BLOOD UREA NITROGEN 31 MG/DL (7-18); CALCIUM LEVEL 9.2 MG/DL (8.8-10.2); CARBON DIOXIDE LEVEL 25 MEQ/L (21-32); CHLORIDE LEVEL 104 MEQ/L (98-107); CK-MB VALUE MASS 1.6 NG/ML (<3.6); CPK CREATINE PHOSPHOKINASE 24 U/L (39-308); CREATININE FOR GFR 1.12 MG/DL (0.70-1.30); GLOMERULAR FILTRATION RATE > 60.0 (>42); GLUCOSE, FASTING 106 MG/DL (70-100); LIPASE 333 U/L (73-393); MB/CK RELATIVE INDEX 6.67 (< OR =4); POTASSIUM SERUM 4.1 MEQ/L (3.5-5.1); SODIUM LEVEL 137 MEQ/L (136-145); TOTAL PROTEIN 7.3 GM/DL (6.4-8.2); TROPONIN I < 0.02 NG/ML (< 0.10)
[2020-08-23] MEDS ORDERED: MORPHINE 10 MG/ML 1ML VIAL (J2270) IM ONE (15:30)
--- NOTE | 2020-08-23 16:01 | REP ---
INDICATION: Chest pain. COMPARISON: 05/12/2019 also without contrast TECHNIQUE: Noncontrast enhanced helical technique FINDINGS: There is no significant change in appearance of the mediastinum or pulmonary fiona. There are no pleural or pericardial effusions. There is no significant change in appearance of the imaged upper abdomen or imaged osseous structures. There is an infrarenal abdominal aortic aneurysm which was better evaluated by this CT angiography examination of 03/23/2020. Evaluation of the lung mckeon shows lung field hyperexpansion status quo. Diffuse septal opacities are again noted and appear unchanged. There is cylindrical bronchiectasis which appears unchanged. There is a small amount of debris in the dependent portion of the bronchus intermedius likely representing mucoid debris. There is a patchy opacity in the right lower lobe which has developed since the last exam. IMPRESSION: 1. Emphysematous changes and fibrotic changes, as described above, which appear stable. 2. Mucoid debris suspected in the bronchus intermedius. 3. New patchy right lower lobe opacity exact etiology uncertain. Infectious etiology versus continuum of chronic change. 4. Other findings and chronic changes as described above. <Electronically signed by Juice Darling > 08/23/20 [id number]
[2020-08-23] MEDS ORDERED: MORPHINE 4 MG/ML 1ML VIAL/SYRINGE (J2270) IV ONE (17:00)
[2020-08-23] MEDS ORDERED: AMOXICILLIN 500 MG CAP PO ONE (17:00)
[2020-08-23] MEDS ORDERED: DOXYCYCLINE HYCLATE 100MG TABLET PO ONE (17:00)
[2020-08-23 17:15] VITALS: BP 142/103
[2020-08-23] MEDS ORDERED: DOXY100C PO (18:12)
[2020-08-23] MEDS ORDERED: AMOX500T PO (18:12)
--- NOTE | 2020-08-24 14:42 | ECGEPIP ---
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
== END 2020-08-23 18:18 | disposition home or self-care (01) ==
LOC: M ED 13:38
DX: M94.0 Chondrocostal junction syndrome [Tietze] (principal); R07.9 Chest pain, unspecified; J44.9 Chronic obstructive pulmonary disease, unspecified; K21.9 Gastro-esophageal reflux disease without esophagitis; I51.9 Heart disease, unspecified; F17.200 Nicotine dependence, unspecified, uncomplicated; Z88.8 Allergy status to other drugs, medicaments and biological substances; Z91.14 Patient's other noncompliance with medication regimen
CPT/HCPCS: 71045; 71250; 80048; 80076; 82550; 82553; 83605; 83690; 84484; 85025; 87040; 87486; 87581; 87633; 87798; 93005; 93041; 94760; 96374; 99285; J2270

== ENCOUNTER → 2020-10-14 | Outpatient (CLI) | payer MEDICARE ==
[~2020-10-14] MED LIST changes: +AMOX500T PO; +DOXY100C PO; +ISOVUE-370 76% 100ML VIAL As Ordered ONE; +TIZA4TAB4; +ZOLO100T PO
--- NOTE | 2020-10-14 09:38 | REP ---
INDICATION: ABN CT LUNG SCAN. Nicotine dependence. COMPARISON: Comparison CT studies of the chest 23 August 2020 and 04 February 2019.. TECHNIQUE: Helical scanning is acquired. 3 mm axial images re-formatted. Coronal and sagittal MPR and coronal MIP images are provided. 75 mL of intravenous Isovue 370 was administered. FINDINGS: Digital preliminary basketball scout radiograph again demonstrates hyperinflation. There are moderate to advanced emphysematous changes throughout the upper lobes and to a slightly lesser extent the lower lobes. The infiltrate noted on in the right base posterolaterally on 23 August 2020 has resolved. No new infiltrate is seen. No pulmonary mass or nodule is appreciated. The 2 there is a quantity of mucus in the left mainstem bronchus on today's CT study. This was not apparent on 23 August 2020. At that time, there was retained mucus in the bronchus intermedius. These changes may reflect chronic bronchitis. Bilateral multifocal calcific pleural plaquing is again seen. Atherosclerotic calcification and plaquing are seen in the aorta. No filling defect is seen in the pulmonary arterial tree to suggest pulmonary embolism. No adrenal lesion is observed. The lower most cuts in today's acquisition demonstrate a infrarenal abdominal aortic aneurysm measuring 4.1 cm in anteroposterior dimension. This was reported and is unchanged from a abdominal CT study dated March 23, 2020. There is no evidence of hilar or mediastinal mass or adenopathy. 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 Some retained mucus in the left mainstem bronchus today question chronic bronchitis. Previously noted right lower lobe infiltrate has resolved. 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 <Electronically signed by Efren Blanco > 10/14/20 [id number]
== END ==
LOC: M RAD 08:43
PROVIDERS: ATTEND Physician Assistant
DX: J44.9 Chronic obstructive pulmonary disease, unspecified (principal); R91.8 Other nonspecific abnormal finding of lung field; F17.218 Nicotine dependence, cigarettes, with other nicotine-induced disorders
CPT/HCPCS: 71260; Q9967

== ENCOUNTER → 2020-12-15 | Outpatient (REF) | payer MEDICARE ==
[~2020-12-15] MED LIST changes: -ISOVUE-370 76% 100ML VIAL As Ordered ONE
[2020-12-15 16:51] LABS: HEMATOCRIT 29.3 % (42.0-52.0); HEMOGLOBIN 8.9 g/dl (13.5-17.5); MEAN CORPUSCULAR HEMOGLOBIN 25.9 pg (27.0-33.0); MEAN CORPUSCULAR HGB CONC 30.4 g/dl (32.0-36.5); MEAN CORPUSCULAR VOLUME 85.4 fl (80.0-96.0); PLATELET COUNT, AUTOMATED 313 10^3/uL (150-450); RED BLOOD COUNT 3.43 10^6/uL (4.30-6.10); WHITE BLOOD COUNT 6.8 10^3/uL (4.0-10.0)
[2020-12-15 17:33] LABS: ALBUMIN 3.5 GM/DL (3.2-5.2); ALT/SGPT 11 U/L (12-78); BILIRUBIN,TOTAL 0.4 MG/DL (0.2-1.0); BLOOD UREA NITROGEN 23 MG/DL (7-18); CALCIUM LEVEL 8.6 MG/DL (8.8-10.2); CARBON DIOXIDE LEVEL 26 MEQ/L (21-32); CHLORIDE LEVEL 107 MEQ/L (98-107); CHOLESTEROL LEVEL 197 MG/DL (<200); CHOLESTEROL RISK RATIO 3.338 (<5); CREATININE FOR GFR 1.19 MG/DL (0.70-1.30); FERRITIN 22 NG/ML (26-388); GLOMERULAR FILTRATION RATE > 60.0 (>42); GLUCOSE, FASTING 91 MG/DL (70-100); HDL CHOLESTEROL 59 MG/DL (>40); IRON (FE) 26 UG/DL (65-175); LDL CHOLESTEROL 112 MG/DL (<100); NON-HDL-C 138 MG/DL; PERCENT SATURATION 7.2 % (19.7-50.0); POTASSIUM SERUM 4.7 MEQ/L (3.5-5.1); SODIUM LEVEL 139 MEQ/L (136-145); TOTAL IRON BINDING CAPACITY 359 UG/DL (250-450); TOTAL PROTEIN 6.8 GM/DL (6.4-8.2); TRIGLYCERIDES LEVEL 128 MG/DL (<150)
== END ==
LOC: M SFHCADAM 14:08
PROVIDERS: ATTEND Family Medicine
DX: D50.9 Iron deficiency anemia, unspecified (principal); E78.2 Mixed hyperlipidemia
CPT/HCPCS: 80053; 80061; 82728; 83550; 85027; G0463

== ENCOUNTER → 2021-03-17 | Outpatient (CLI) | payer MEDICARE ==
[~2021-03-17] MED LIST changes: -DOXY100C PO; +DOXY100C3 PO
--- NOTE | 2021-03-17 16:04 | REP ---
INDICATION: CHRONIC RADICULAR PAIN OF LWER BACK COMPARISON: None. TECHNIQUE: AP, lateral, bilateral oblique, and coned-down views of the lumbar spine. FINDINGS: Osteopenia and relatively moderate multilevel degenerative changes include endplate sclerosis osteophytosis and facet hypertrophy. No obvious acute fracture/compression injury or subluxation. IMPRESSION: Osteopenia and relatively moderate multilevel degenerative spondylosis. <Electronically signed by Gregorio Montenegro > 03/17/21 1600
== END ==
LOC: M ADAMS 15:20
PROVIDERS: ATTEND Family Medicine
DX: M85.88 Other specified disorders of bone density and structure, other site (principal); M54.16 Radiculopathy, lumbar region

== ENCOUNTER → 2021-03-25 | Outpatient (CLI) | payer MEDICARE ==
--- NOTE | 2021-03-26 21:31 | REPVR ---
PROCEDURE INFORMATION: Exam: MR Lumbar Spine Without Contrast Exam date and time: 03/25/2021 2:57 PM Age: 80 years old Clinical indication: Low back pain; Additional info: Radiculopathy TECHNIQUE: Imaging protocol: Multiplanar magnetic resonance images of the lumbar spine without intravenous contrast. COMPARISON: MRI-Spine, L.S. without con 07/20/2015 9:34 AM FINDINGS: Vertebral body heights are maintained. No abnormal marrow signal. Multilevel Schmorl's node phenomena. No cord compression. No abnormal cord signal. Conus medullaris terminates at the L1 level. Paravertebral soft tissues are unremarkable. Infrarenal abdominal aortic aneurysm measuring 4.1 cm in transverse diameter. L1-L2: No significant canal or foraminal narrowing. L2-L3: Broad-based disc bulge causes mild bilateral foraminal narrowing. No significant canal narrowing. L3-L4: Broad-based disc bulge causes mild left and moderate right foraminal narrowing. No significant canal narrowing. L4-L5: Broad-based disc bulge causes mild bilateral foraminal narrowing. No significant canal narrowing. L5-S1: Broad-based disc bulge causes mild bilateral foraminal narrowing. No significant canal narrowing. IMPRESSION: 1. Multilevel spondylotic changes of the lumbar spine, as detailed above. 2. Infrarenal abdominal aortic aneurysm measuring 4.1 cm in transverse diameter. Electronically signed by: Arsenio Mari On 03/26/2021 21:30:49 PM
== END ==
LOC: M RAD 14:20
PROVIDERS: ATTEND Family Medicine
DX: M54.16 Radiculopathy, lumbar region (principal); I71.4 Abdominal aortic aneurysm, without rupture

== ENCOUNTER → 2021-08-01 | Outpatient (CLI) | payer MEDICARE ==
[~2021-08-01] MED LIST changes: +BACITAB PO; +FERR1TAB8 PO; +HYDR-4517 PO; +ISOS20TA4 PO; -ISOS20TAB PO; +PROAAER10 INH; +PROT20TA11 PO; +SPIR-10 PO; +SUCR1TA PO; +TIZA10TA; -TIZA4TAB4
== END ==
LOC: M ADAMS 12:43
PROVIDERS: ATTEND Physician Assistant
DX: R06.00 Dyspnea, unspecified (principal)
CPT/HCPCS: 71046; G0463

== ENCOUNTER → 2021-08-15 | Outpatient (REF) | payer MEDICARE ==
[~2021-08-15] MED LIST changes: -BACITAB PO; -FERR1TAB8 PO; -PROT20TA11 PO; -SPIR-10 PO; -SUCR1TA PO
[2021-08-15 18:08] LABS: MEAN CORPUSCULAR HEMOGLOBIN 20.6 pg (27.0-33.0); MEAN CORPUSCULAR HGB CONC 28.2 g/dl (32.0-36.5); MEAN CORPUSCULAR VOLUME 73.1 fl (80.0-96.0); PLATELET COUNT, AUTOMATED 273 10^3/uL (150-450); RED BLOOD COUNT 2.86 10^6/uL (4.30-6.10); WHITE BLOOD COUNT 5.5 10^3/uL (4.0-10.0)
[2021-08-15 18:26] LABS: HEMATOCRIT 20.9 % (42.0-52.0); HEMOGLOBIN 5.9 g/dl (13.5-17.5)
[2021-08-15 18:49] LABS: ALBUMIN 3.4 GM/DL (3.2-5.2); ALT/SGPT 14 U/L (12-78); BILIRUBIN,TOTAL 0.2 MG/DL (0.2-1.0); BLOOD UREA NITROGEN 16 MG/DL (7-18); CALCIUM LEVEL 8.9 MG/DL (8.8-10.2); CARBON DIOXIDE LEVEL 27 MEQ/L (21-32); CHLORIDE LEVEL 108 MEQ/L (98-107); CHOLESTEROL LEVEL 145 MG/DL (<200); CHOLESTEROL RISK RATIO 2.416 (<5); CREATININE FOR GFR 1.21 MG/DL (0.70-1.30); FERRITIN 14 NG/ML (26-388); FREE T4 1.08 NG/DL (0.76-1.46); GLOMERULAR FILTRATION RATE > 60.0 (>42); GLUCOSE, FASTING 113 MG/DL (70-100); HDL CHOLESTEROL 60 MG/DL (>40); IRON (FE) 12 UG/DL (65-175); LDL CHOLESTEROL 66 MG/DL (<100); NON-HDL-C 85 MG/DL; PERCENT SATURATION 3.2 % (19.7-50.0); POTASSIUM SERUM 4.3 MEQ/L (3.5-5.1); SODIUM LEVEL 139 MEQ/L (136-145); THYROID STIMULATING HORMONE 0.827 uIU/ML (0.358-3.740); TOTAL IRON BINDING CAPACITY 370 UG/DL (250-450); TOTAL PROTEIN 6.8 GM/DL (6.4-8.2); TRIGLYCERIDES LEVEL 96 MG/DL (<150)
== END ==
LOC: M SFHCADAM 15:07
PROVIDERS: ATTEND Family Medicine
DX: D50.9 Iron deficiency anemia, unspecified (principal); G90.519 Complex regional pain syndrome I of unspecified upper limb; R09.02 Hypoxemia; I25.10 Atherosclerotic heart disease of native coronary artery without angina pectoris; Z79.899 Other long term (current) drug therapy

== ENCOUNTER → 2021-08-25 | Outpatient (CLI) | payer MEDICARE ==
[~2021-08-25] MED LIST changes: +BACITAB PO; +FERR1TAB8 PO; +PROT20TA11 PO; +SPIR-10 PO; +SUCR1TA PO
[2021-08-25 14:13] LABS: BASO # 0.1 10^3/uL (0.0-0.2); BASO % 0.5 % (0.0-1.0); EOS # 0.4 10^3/uL (0.0-0.5); EOS % 4.6 % (0.0-3.0); HEMATOCRIT 29.1 % (42.0-52.0); HEMOGLOBIN 8.6 g/dl (13.5-17.5); LYMPH # 1.4 10^3/uL (1.5-5.0); LYMPH % 15.1 % (24.0-44.0); MEAN CORPUSCULAR HGB CONC 29.6 g/dl (32.0-36.5); MEAN CORPUSCULAR VOLUME 81.3 fl (80.0-96.0); MONO # 1.2 10^3/uL (0.0-0.8); NEUTROPHILS # 6.2 10^3/uL (1.5-8.5); NEUTROPHILS % 66.4 % (36.0-66.0); PLATELET COUNT, AUTOMATED 245 10^3/uL (150-450); RED BLOOD COUNT 3.58 10^6/uL (4.30-6.10); WHITE BLOOD COUNT 9.3 10^3/uL (4.0-10.0)
[2021-08-25 14:34] LABS: ALBUMIN 3.1 GM/DL (3.2-5.2); ALT/SGPT 14 U/L (12-78); BILIRUBIN,TOTAL 0.2 MG/DL (0.2-1.0); BLOOD UREA NITROGEN 18 MG/DL (7-18); CALCIUM LEVEL 8.9 MG/DL (8.8-10.2); CARBON DIOXIDE LEVEL 28 MEQ/L (21-32); CHLORIDE LEVEL 106 MEQ/L (98-107); FERRITIN 93 NG/ML (26-388); GLOMERULAR FILTRATION RATE > 60.0 (>42); GLUCOSE, FASTING 90 MG/DL (70-100); NT-PRO BNP 3529 PG/ML (<450); POTASSIUM SERUM 4.4 MEQ/L (3.5-5.1); SODIUM LEVEL 139 MEQ/L (136-145); TOTAL PROTEIN 6.5 GM/DL (6.4-8.2)
[2021-08-25 14:40] LABS: VITAMIN B12 LEVEL 274 PG/ML (247-911)
== END ==
LOC: M PLALAB 12:21
PROVIDERS: ATTEND Family Medicine
DX: D50.0 Iron deficiency anemia secondary to blood loss (chronic) (principal); I50.32 Chronic diastolic (congestive) heart failure

== ENCOUNTER → 2021-08-28 | Outpatient (CLI) | payer MEDICARE | LOC: M WUC 08:52 | PROVIDERS: ATTEND Family Medicine | DX: D50.0 Iron deficiency anemia secondary to blood loss (chronic) (principal) ==

== ENCOUNTER → 2021-09-18 | Outpatient (CLI) | payer MEDICARE | LOC: M PLARAD 11:10 | PROVIDERS: ATTEND Family Medicine | DX: R91.1 Solitary pulmonary nodule (principal) | CPT/HCPCS: 78815; A9552 ==

== ENCOUNTER → 2021-10-10 | Outpatient (CLI) | payer MEDICARE | LOC: M ADAMS 09:57 | PROVIDERS: ATTEND Family Medicine | DX: Q76.6 Other congenital malformations of ribs (principal) ==

== ENCOUNTER → 2021-11-15 | Outpatient (CLI) | payer MEDICARE ==
[~2021-11-15] MED LIST changes: +AMLO1TAB24; +B-12100020; +TORS10TA3
[2021-11-15 16:18] LABS: BASO # 0.1 10^3/uL (0.0-0.2); BASO % 0.9 % (0.0-1.0); EOS # 0.4 10^3/uL (0.0-0.5); EOS % 5.1 % (0.0-3.0); HEMATOCRIT 36.2 % (42.0-52.0); HEMOGLOBIN 11.5 g/dl (13.5-17.5); LYMPH # 1.8 10^3/uL (1.5-5.0); LYMPH % 23.5 % (24.0-44.0); MEAN CORPUSCULAR HEMOGLOBIN 27.1 pg (27.0-33.0); MEAN CORPUSCULAR HGB CONC 31.8 g/dl (32.0-36.5); MEAN CORPUSCULAR VOLUME 85.2 fl (80.0-96.0); MONO # 0.9 10^3/uL (0.0-0.8); MONO % 11.9 % (2.0-8.0); NEUTROPHILS # 4.4 10^3/uL (1.5-8.5); NEUTROPHILS % 58.5 % (36.0-66.0); PLATELET COUNT, AUTOMATED 237 10^3/uL (150-450); RED BLOOD COUNT 4.25 10^6/uL (4.30-6.10); WHITE BLOOD COUNT 7.6 10^3/uL (4.0-10.0)
[2021-11-15 16:40] LABS: ALBUMIN 3.4 GM/DL (3.2-5.2); ALT/SGPT 17 U/L (12-78); BILIRUBIN,TOTAL 0.5 MG/DL (0.2-1.0); BLOOD UREA NITROGEN 19 MG/DL (7-18); CARBON DIOXIDE LEVEL 27 MEQ/L (21-32); CHLORIDE LEVEL 109 MEQ/L (98-107); CREATININE FOR GFR 1.16 MG/DL (0.70-1.30); GLOMERULAR FILTRATION RATE > 60.0 (>42); GLUCOSE, FASTING 92 MG/DL (70-100); NT-PRO BNP 3827 PG/ML (<450); POTASSIUM SERUM 4.2 MEQ/L (3.5-5.1); SODIUM LEVEL 140 MEQ/L (136-145); TOTAL PROTEIN 6.6 GM/DL (6.4-8.2)
== END ==
LOC: M WUC 10:56
PROVIDERS: ATTEND Internal Medicine Cardiovascular Disease
DX: R06.02 Shortness of breath (principal); D50.0 Iron deficiency anemia secondary to blood loss (chronic); I50.9 Heart failure, unspecified

== ENCOUNTER → 2022-01-10 | Outpatient (CLI) | payer MEDICARE ==
[~2022-01-10] MED LIST changes: -AMLO1TAB24; +AMLO1TAB24 PO; +ASPI81CH33 PO; -B-12100020; +B-12100020 PO; +NITR0.4S14 SL; +PRED10TA2 PO; -TORS10TA3; +TORS10TA3 PO
[2022-01-10 14:40] LABS: HEMATOCRIT 35.7 % (42.0-52.0); HEMOGLOBIN 11.2 g/dl (13.5-17.5); MEAN CORPUSCULAR HEMOGLOBIN 28.4 pg (27.0-33.0); MEAN CORPUSCULAR HGB CONC 31.4 g/dl (32.0-36.5); MEAN CORPUSCULAR VOLUME 90.4 fl (80.0-96.0); PLATELET COUNT, AUTOMATED 278 10^3/uL (150-450); RED BLOOD COUNT 3.95 10^6/uL (4.30-6.10); WHITE BLOOD COUNT 8.8 10^3/uL (4.0-10.0)
[2022-01-10 15:13] LABS: ALBUMIN 3.5 GM/DL (3.2-5.2); BILIRUBIN,TOTAL 0.4 MG/DL (0.2-1.0); CALCIUM LEVEL 9.5 MG/DL (8.8-10.2); CHOLESTEROL RISK RATIO 2.446 (<5); CREATININE FOR GFR 1.31 MG/DL (0.70-1.30); GLOMERULAR FILTRATION RATE 56.2 (>42); POTASSIUM SERUM 4.2 MEQ/L (3.5-5.1); TOTAL PROTEIN 6.6 GM/DL (6.4-8.2)
== END ==
LOC: M WUC 09:52
PROVIDERS: ATTEND Family Medicine
DX: R94.2 Abnormal results of pulmonary function studies (principal); I50.32 Chronic diastolic (congestive) heart failure

== ENCOUNTER → 2022-01-17 | Outpatient (REF) | payer MEDICARE ==
[2022-01-17 17:41] LABS: CALCIUM LEVEL 9.3 MG/DL (8.8-10.2); CREATININE FOR GFR 1.31 MG/DL (0.70-1.30); GLOMERULAR FILTRATION RATE 56.2 (>42); POTASSIUM SERUM 4.1 MEQ/L (3.5-5.1)
[2022-01-17 17:44] LABS: HEMATOCRIT 36.8 % (42.0-52.0); HEMOGLOBIN 11.7 g/dl (13.5-17.5); MEAN CORPUSCULAR HEMOGLOBIN 28.7 pg (27.0-33.0); MEAN CORPUSCULAR HGB CONC 31.8 g/dl (32.0-36.5); MEAN CORPUSCULAR VOLUME 90.2 fl (80.0-96.0); PLATELET COUNT, AUTOMATED 228 10^3/uL (150-450); RED BLOOD COUNT 4.08 10^6/uL (4.30-6.10); WHITE BLOOD COUNT 7.9 10^3/uL (4.0-10.0)
[2022-01-17 18:31] LABS: APPEARANCE, URINE CLEAR (CLEAR); BACTERIA, URINE AUTO NEGATIVE (NEGATIVE); BILIRUBIN, URINE AUTO NEGATIVE (NEGATIVE); BLOOD, URINE BLOOD 1+ (NEGATIVE); COLOR, URINE YELLOW (YELLOW); GLUCOSE, URINE (UA) AUTO NEGATIVE (NEGATIVE); KETONE, URINE AUTO NEGATIVE (NEGATIVE); LEUKOCYTE ESTERASE, URINE AUTO NEGATIVE (NEGATIVE); NITRITE, URINE AUTO NEGATIVE (NEGATIVE); PROTEIN, URINE AUTO 2+ mg/dL (NEGATIVE); RBC, URINE AUTO 2 /HPF (0-3); SPECIFIC GRAVITY URINE AUTO 1.012 (1.002-1.035); SQUAMOUS EPITHELIAL CELL UR AU 0 /HPF (0-6); UROBILINOGEN, URINE AUTO 0.2 mg/dL (0.0-2.0); WBC, URINE AUTO 1 /HPF (0-3)
== END ==
LOC: M SFHCADAM 11:20
PROVIDERS: ATTEND Family Medicine
DX: I50.32 Chronic diastolic (congestive) heart failure (principal); N40.1 Benign prostatic hyperplasia with lower urinary tract symptoms; F11.20 Opioid dependence, uncomplicated; Z12.5 Encounter for screening for malignant neoplasm of prostate

== ENCOUNTER → 2022-02-15 | Outpatient (CLI) | payer MEDICARE | LOC: M RAD 14:56 | PROVIDERS: ATTEND Internal Medicine Pulmonary Disease | DX: R91.8 Other nonspecific abnormal finding of lung field (principal) ==

== ENCOUNTER → 2022-04-18 | Outpatient (REF) | payer MEDICARE ==
[2022-04-18 15:56] LABS: HEMATOCRIT 34.6 % (42.0-52.0); HEMOGLOBIN 10.9 g/dl (13.5-17.5); MEAN CORPUSCULAR HEMOGLOBIN 28.4 pg (27.0-33.0); MEAN CORPUSCULAR HGB CONC 31.5 g/dl (32.0-36.5); MEAN CORPUSCULAR VOLUME 90.1 fl (80.0-96.0); PLATELET COUNT, AUTOMATED 196 10^3/uL (150-450); RED BLOOD COUNT 3.84 10^6/uL (4.30-6.10); WHITE BLOOD COUNT 7.5 10^3/uL (4.0-10.0)
[2022-04-18 16:42] LABS: ALBUMIN 3.5 GM/DL (3.2-5.2); BILIRUBIN,TOTAL 0.2 MG/DL (0.2-1.0); CALCIUM LEVEL 8.7 MG/DL (8.8-10.2); CHOLESTEROL RISK RATIO 2.238 (<5); CREATININE FOR GFR 1.84 MG/DL (0.70-1.30); FREE T4 0.93 NG/DL (0.76-1.46); PERCENT SATURATION 12.5 % (19.7-50.0); POTASSIUM SERUM 3.9 MEQ/L (3.5-5.1); THYROID STIMULATING HORMONE 2.65 uIU/ML (0.358-3.740); TOTAL PROTEIN 6.6 GM/DL (6.4-8.2)
== END ==
LOC: M SFHCADAM 14:26
PROVIDERS: ATTEND Family Medicine
DX: F32.9 Major depressive disorder, single episode, unspecified (principal); D50.9 Iron deficiency anemia, unspecified; E53.8 Deficiency of other specified B group vitamins; I25.10 Atherosclerotic heart disease of native coronary artery without angina pectoris; Z13.1 Encounter for screening for diabetes mellitus

== ENCOUNTER 2022-04-22 12:54 | Inpatient (IN) | payer MEDICARE ==
[~2022-04-22] VITALS: Ht 167.6 cm; Wt 59.1 kg
[2022-04-22] MEDS: AZITHROMYCIN 250MG TABLET PO SCH (09:00)
[2022-04-22 13:55] LABS: BASO % 0.6 % (0.0-1.0); EOS # 0.4 10^3/uL (0.0-0.5); EOS % 5.7 % (0.0-3.0); LYMPH # 1.1 10^3/uL (1.5-5.0); LYMPH % 15.7 % (24.0-44.0); MEAN CORPUSCULAR HEMOGLOBIN 29.2 pg (27.0-33.0); MEAN CORPUSCULAR HGB CONC 32.3 g/dl (32.0-36.5); MEAN CORPUSCULAR VOLUME 90.4 fl (80.0-96.0); MONO # 0.7 10^3/uL (0.0-0.8); MONO % 10.3 % (2.0-8.0); NEUTROPHILS # 4.5 10^3/uL (1.5-8.5); NEUTROPHILS % 67.4 % (36.0-66.0); PLATELET COUNT, AUTOMATED 165 10^3/uL (150-450); RED BLOOD COUNT 3.43 10^6/uL (4.30-6.10); WHITE BLOOD COUNT 6.7 10^3/uL (4.0-10.0)
[2022-04-22] MEDS ORDERED: fentaNYL 100 MCG/2 ML INJECTION IV PRN (14:00)
[2022-04-22] MEDS ORDERED: ONDANSETRON 4MG 2ML VIAL IV ONE (14:00)
[2022-04-22 14:05] LABS: PROTHROMBIN TIME 13.6 SECONDS (12.7-14.5)
[2022-04-22 14:27] LABS: CK-MB VALUE MASS 1.6 NG/ML (<3.6); MB/CK RELATIVE INDEX 1.65 (< OR =4)
[2022-04-22 14:32] LABS: ALBUMIN 3.2 GM/DL (3.2-5.2); ALT/SGPT 17 U/L (12-78); BILIRUBIN,DIRECT < 0.1 MG/DL (0.0-0.2); BILIRUBIN,TOTAL 0.3 MG/DL (0.2-1.0); BLOOD UREA NITROGEN 24 MG/DL (7-18); CALCIUM LEVEL 8.4 MG/DL (8.8-10.2); CARBON DIOXIDE LEVEL 29 MEQ/L (21-32); CHLORIDE LEVEL 104 MEQ/L (98-107); CREATININE FOR GFR 1.62 MG/DL (0.70-1.30); FREE T4 0.94 NG/DL (0.76-1.46); GLUCOSE, FASTING 114 MG/DL (70-100); POTASSIUM SERUM 4.1 MEQ/L (3.5-5.1); SODIUM LEVEL 138 MEQ/L (136-145); TOTAL PROTEIN 6.3 GM/DL (6.4-8.2)
[2022-04-22 15:39] LABS: RSV AMPLIFICATION NEGATIVE (NEGATIVE)
[2022-04-22] MEDS ORDERED: PERCOCET 5MG/325MG TAB PO PRN (16:30)
[2022-04-22] MEDS ORDERED: ACETAMINOPHEN TAB 650MG DOSE (2X325MG) PO PRN (16:30)
[2022-04-22 16:50] LABS: MAGNESIUM LEVEL 2.3 MG/DL (1.8-2.4)
[2022-04-22] MEDS: cefTRIAXone SOD 1 GM in D5W MINI-BAG PLUS 50 ML IV SCH (17:00)
[2022-04-22] MEDS ORDERED: ALBU2.5V10 INH (17:31)
[2022-04-22] MEDS ORDERED: TORS5TAB2 PO (17:31)
[2022-04-23] VITALS (8 sets, daily range): BP systolic 140–177; BP diastolic 56–82
[2022-04-23] MEDS ORDERED: LIDOCAINE 2% 5ML JELLY UROJET TOP ONE (02:00)
[2022-04-23] MEDS: NITROGLYCERIN 0.4 MG SUBL TABLET SL PRN ×3 (04:26→04:37)
[2022-04-23] MEDS: ALBUTEROL SULFATE 2.5 MG/0.5 ML INH NEB SOLN INH SCH ×4 (04:44→20:06)
[2022-04-23] MEDS ORDERED: MORPHINE 2 MG/ML 1ML VIAL IV ONE (05:00)
[2022-04-23 05:09] LABS: CK-MB VALUE MASS 1.6 NG/ML (<3.6); MB/CK RELATIVE INDEX 2.05 (< OR =4)
[2022-04-23 06:02] LABS: HEMATOCRIT 30.4 % (42.0-52.0); HEMOGLOBIN 9.6 g/dl (13.5-17.5); MEAN CORPUSCULAR HGB CONC 31.6 g/dl (32.0-36.5); MEAN CORPUSCULAR VOLUME 91.8 fl (80.0-96.0); PLATELET COUNT, AUTOMATED 162 10^3/uL (150-450); RED BLOOD COUNT 3.31 10^6/uL (4.30-6.10); WHITE BLOOD COUNT 7.2 10^3/uL (4.0-10.0)
[2022-04-23 06:48] LABS: BILIRUBIN,TOTAL 0.3 MG/DL (0.2-1.0); CALCIUM LEVEL 8.6 MG/DL (8.8-10.2); CREATININE FOR GFR 1.61 MG/DL (0.70-1.30); GLOMERULAR FILTRATION RATE 44.3 (>42); POTASSIUM SERUM 4.3 MEQ/L (3.5-5.1); TOTAL PROTEIN 5.7 GM/DL (6.4-8.2)
[2022-04-23 07:31] LABS: CK-MB VALUE MASS 1.7 NG/ML (<3.6); MB/CK RELATIVE INDEX 2.74 (< OR =4)
[2022-04-23] MEDS: amLODIPine 5 MG TAB PO SCH (08:52)
[2022-04-23] MEDS: ASPIRIN 81 MG CHEW TABLET PO SCH (08:53)
[2022-04-23] MEDS: busPIRone 5 MG TAB PO SCH (08:53)
[2022-04-23] MEDS: AZITHROMYCIN 250MG TABLET PO SCH (08:53)
[2022-04-23 11:29] LABS: CK-MB VALUE MASS 1.8 NG/ML (<3.6)
[2022-04-23] MEDS: cefTRIAXone SOD 1 GM in D5W MINI-BAG PLUS 50 ML IV SCH (16:39)
[2022-04-23] MEDS: DOXYCYCLINE HYCLATE 100MG TABLET PO SCH (20:34)
[2022-04-23] MEDS: ATORVASTATIN 20 MG TAB PO SCH (20:34)
[2022-04-23] MEDS: TAMSULOSIN 0.4 MG CAP PO SCH (20:34)
[2022-04-24] VITALS (9 sets, daily range): BP systolic 118–209; BP diastolic 56–88
[2022-04-24] MEDS: ALBUTEROL SULFATE 2.5 MG/0.5 ML INH NEB SOLN INH SCH ×4 (00:54→19:05)
[2022-04-24] MEDS ORDERED: cloNIDine 0.1MG TABLET PO ONE (08:25)
[2022-04-24] MEDS ORDERED: NITROGLYCERIN 0.4 MG SUBL TABLET SL STA (08:26)
[2022-04-24] MEDS ORDERED: ISOSORBIDE DIN. (ISORDIL) 30 MG TAB PO ONE (08:30)
[2022-04-24] MEDS ORDERED: MORPHINE 4 MG/ML 1ML VIAL/SYRINGE IV ONE (08:30)
[2022-04-24] MEDS ORDERED: NITROGLYCERIN 0.4 MG SUBL TABLET SL PRN (08:30)
[2022-04-24] MEDS ORDERED: hydrALAZINE 20MG/ML 1ML VIAL (J0360 PER 20MG) IV ONE (08:30)
[2022-04-24] MEDS: NICOTINE 14 MG/24 HR TRANSDERMAL TD SCH (09:39)
[2022-04-24] MEDS: ASPIRIN 81 MG CHEW TABLET PO SCH (09:41)
[2022-04-24] MEDS: busPIRone 5 MG TAB PO SCH (09:44)
[2022-04-24] MEDS: amLODIPine 5 MG TAB PO SCH (09:44)
[2022-04-24] MEDS: DOXYCYCLINE HYCLATE 100MG TABLET PO SCH ×2 (09:44→20:48)
[2022-04-24 09:58] LABS: CK-MB VALUE MASS 1.4 NG/ML (<3.6); MB/CK RELATIVE INDEX 2.59 (< OR =4)
[2022-04-24 12:47] LABS: BASO % 0.7 % (0.0-1.0); EOS # 0.2 10^3/uL (0.0-0.5); EOS % 3.5 % (0.0-3.0); HEMATOCRIT 29.1 % (42.0-52.0); HEMOGLOBIN 9.3 g/dl (13.5-17.5); LYMPH # 0.9 10^3/uL (1.5-5.0); MEAN CORPUSCULAR VOLUME 90.7 fl (80.0-96.0); MONO # 0.6 10^3/uL (0.0-0.8); MONO % 10.8 % (2.0-8.0); NEUTROPHILS # 3.7 10^3/uL (1.5-8.5); NEUTROPHILS % 67.6 % (36.0-66.0); PLATELET COUNT, AUTOMATED 197 10^3/uL (150-450); RED BLOOD COUNT 3.21 10^6/uL (4.30-6.10); WHITE BLOOD COUNT 5.5 10^3/uL (4.0-10.0)
[2022-04-24] MEDS: ISOSORBIDE DIN. (ISORDIL) 30 MG TAB PO SCH ×3 (13:16→23:41)
[2022-04-24] MEDS: **hydrALAZINE HCL** 25 MG TAB PO SCH ×3 (13:17→23:40)
[2022-04-24] MEDS: cloNIDine 0.1MG TABLET PO SCH ×3 (13:17→23:41)
[2022-04-24 13:22] LABS: ALBUMIN 2.8 GM/DL (3.2-5.2); BILIRUBIN,TOTAL 0.2 MG/DL (0.2-1.0); CALCIUM LEVEL 8.7 MG/DL (8.8-10.2); CREATININE FOR GFR 1.29 MG/DL (0.70-1.30); GLOMERULAR FILTRATION RATE 57.2 (>42); POTASSIUM SERUM 3.9 MEQ/L (3.5-5.1); TOTAL PROTEIN 5.5 GM/DL (6.4-8.2)
[2022-04-24 13:30] LABS: CK-MB VALUE MASS 1.6 NG/ML (<3.6); MB/CK RELATIVE INDEX 3.27 (< OR =4)
[2022-04-24] MEDS: cefTRIAXone SOD 1 GM in D5W MINI-BAG PLUS 50 ML IV SCH (17:38)
[2022-04-24] MEDS: TAMSULOSIN 0.4 MG CAP PO SCH (20:48)
[2022-04-24] MEDS: ATORVASTATIN 20 MG TAB PO SCH (20:48)
[2022-04-25] VITALS: BP 118/58
[2022-04-25] MEDS: ALBUTEROL SULFATE 2.5 MG/0.5 ML INH NEB SOLN INH SCH ×3 (01:37→13:35)
[2022-04-25 04:00] VITALS: BP 183/78
[2022-04-25] MEDS: **hydrALAZINE HCL** 25 MG TAB PO SCH (05:03)
[2022-04-25] MEDS: ISOSORBIDE DIN. (ISORDIL) 30 MG TAB PO SCH (05:03)
[2022-04-25] MEDS: cloNIDine 0.1MG TABLET PO SCH ×2 (05:04→12:00)
[2022-04-25 08:00] VITALS: BP 118/68
[2022-04-25] MEDS: NICOTINE 14 MG/24 HR TRANSDERMAL TD SCH (09:02)
[2022-04-25] MEDS: busPIRone 5 MG TAB PO SCH (09:02)
[2022-04-25] MEDS: DOXYCYCLINE HYCLATE 100MG TABLET PO SCH (09:02)
[2022-04-25] MEDS: ASPIRIN 81 MG CHEW TABLET PO SCH (09:02)
[2022-04-25] MEDS ORDERED: AMLO1TAB25 PO (10:03)
[2022-04-25] MEDS ORDERED: ISOS1TAB PO (10:04)
[2022-04-25] MEDS ORDERED: SELF1KIT MC (10:04)
[2022-04-25] MEDS ORDERED: SENOKOT S TAB PO ONE (11:35)
[2022-04-25] MEDS ORDERED: MOM 30ML SUSPENSION UDC PO ONE (11:40)
[2022-04-25 12:00] VITALS: BP 146/61
[2022-04-25] MEDS ORDERED: ISOS20TA4 PO (13:10)
[2022-04-25] MEDS ORDERED: HYDR10TAB PO (13:10)
[2022-04-25] MEDS ORDERED: FLUBLOK(EGG FREE)(QUAD)INFLUENZA VACC 0.5ML SYRINGE 18YRS & OLDER IM.IMMUN ONE (13:35)
[2022-04-25] MEDS ORDERED: DOXY150C3 PO (15:36)
[2022-04-25] MEDS ORDERED: CEFD300C41 PO (15:36)
[2022-04-25] MEDS ORDERED: BACITAB PO (15:36)
== END 2022-04-25 15:45 | disposition home health service (06) | DRG 194 ==
LOC: M ED 12:54 → M ED INP 12:55 → EDBEDREQSVC 15:58 → ENRESERV 04-23 11:55 → M PCU 04-23 13:41
PROVIDERS: ADMIT Internal Medicine; ATTEND General Practice
DX: J18.9 Pneumonia, unspecified organism (principal); J96.11 Chronic respiratory failure with hypoxia; G90.511 Complex regional pain syndrome I of right upper limb; N17.9 Acute kidney failure, unspecified; I10 Essential (primary) hypertension; J44.9 Chronic obstructive pulmonary disease, unspecified; D50.9 Iron deficiency anemia, unspecified; R29.6 Repeated falls; G47.33 Obstructive sleep apnea (adult) (pediatric); F17.200 Nicotine dependence, unspecified, uncomplicated; R07.89 Other chest pain; I16.0 Hypertensive urgency; E78.5 Hyperlipidemia, unspecified; R94.31 Abnormal electrocardiogram [ECG] [EKG]; R55 Syncope and collapse; I27.20 Pulmonary hypertension, unspecified; Z71.6 Tobacco abuse counseling; Z99.81 Dependence on supplemental oxygen; Z79.52 Long term (current) use of systemic steroids; Z79.82 Long term (current) use of aspirin; Z79.899 Other long term (current) drug therapy; Z88.8 Allergy status to other drugs, medicaments and biological substances

== ENCOUNTER 2022-05-04 09:48 | Inpatient (IN) | payer MEDICARE ==
[~2022-05-04] VITALS: Ht 170.2 cm; Wt 63.5 kg
[~2022-05-04 09:48] MED LIST changes: +ALBU2.5V10 INH; +CEFD300C41 PO; +DOXY150C3 PO; +HYDR10TAB PO; +ISOS1TAB PO; +SELF1KIT MC; +TORS5TAB2 PO
[2022-05-04] MEDS ORDERED: LIDOCAINE 5% (LIDODERM) PATCH TD ONE (11:00)
[2022-05-04 11:57] LABS: BASO % 0.5 % (0.0-1.0); EOS # 0.1 10^3/uL (0.0-0.5); EOS % 1.6 % (0.0-3.0); HEMATOCRIT 28.9 % (42.0-52.0); HEMOGLOBIN 9.1 g/dl (13.5-17.5); LYMPH # 0.5 10^3/uL (1.5-5.0); LYMPH % 6.5 % (24.0-44.0); MEAN CORPUSCULAR HEMOGLOBIN 28.7 pg (27.0-33.0); MEAN CORPUSCULAR HGB CONC 31.5 g/dl (32.0-36.5); MEAN CORPUSCULAR VOLUME 91.2 fl (80.0-96.0); MONO # 0.5 10^3/uL (0.0-0.8); MONO % 6.8 % (2.0-8.0); NEUTROPHILS # 6.2 10^3/uL (1.5-8.5); NEUTROPHILS % 84.3 % (36.0-66.0); PLATELET COUNT, AUTOMATED 316 10^3/uL (150-450); RED BLOOD COUNT 3.17 10^6/uL (4.30-6.10); WHITE BLOOD COUNT 7.4 10^3/uL (4.0-10.0)
[2022-05-04 12:32] LABS: ALBUMIN 3.1 GM/DL (3.2-5.2); ALT/SGPT 24 U/L (12-78); BILIRUBIN,DIRECT < 0.1 MG/DL (0.0-0.2); BILIRUBIN,TOTAL 0.2 MG/DL (0.2-1.0); LIPASE 57 U/L (73-393); TOTAL PROTEIN 6.2 GM/DL (6.4-8.2)
[2022-05-04] MEDS ORDERED: MORPHINE 4 MG/ML 1ML VIAL/SYRINGE IV ONE (13:10)
[2022-05-04] MEDS ORDERED: AZITHROMYCIN INJ 500 MG, VIAL MATE ADAPTER 1 EACH in NS 250 ML IV ONE (13:15)
[2022-05-04] MEDS ORDERED: cefTRIAXone SOD 1 GM in D5W MINI-BAG PLUS 50 ML IV ONE (13:15)
[2022-05-04 13:40] LABS: CK-MB VALUE MASS 1.1 NG/ML (<3.6); MB/CK RELATIVE INDEX 2.12 (< OR =4)
[2022-05-04] MEDS ORDERED: ALBUTEROL 90 MCG/ACT 8GM HFA INHALER INH ONE (13:45)
[2022-05-04] MEDS ORDERED: AMLO1TAB25 PO (14:26)
[2022-05-04] MEDS ORDERED: BUDE0.5S6 INH (14:26)
[2022-05-04] MEDS ORDERED: BACI1CAP PO (14:26)
[2022-05-04] MEDS ORDERED: ALBU8.5H INH (14:26)
[2022-05-04] MEDS ORDERED: HYDR10TAB PO (14:26)
[2022-05-04] MEDS ORDERED: HOME MED LIST COMPLETE! XX SCH (14:30)
[2022-05-04 14:33] LABS: RSV AMPLIFICATION NEGATIVE (NEGATIVE)
[2022-05-04] MEDS ORDERED: **hydrALAZINE** 10 MG TAB PO PRN (15:00)
[2022-05-04] MEDS: methylPREDNISolone 40MG 1ML VIAL IV SCH (15:39)
[2022-05-04] MEDS: MORPHINE 4 MG/ML 1ML VIAL/SYRINGE IV PRN ×2 (15:40→20:03)
[2022-05-04 16:53] LABS: CALCIUM LEVEL 8.5 MG/DL (8.8-10.2); CREATININE FOR GFR 1.55 MG/DL (0.70-1.30); GLOMERULAR FILTRATION RATE 46.3 (>42); POTASSIUM SERUM 4.3 MEQ/L (3.5-5.1)
[2022-05-04] MEDS: LACTOBACILLUS ACIDOPHILUS CAP (BACID) PO SCH (17:56)
[2022-05-04 18:00] VITALS: BP 165/79
[2022-05-04 20:00] VITALS: BP 154/65
[2022-05-04] MEDS ORDERED: LevoFLOXacin IV 750 MG in IV 1 EA IV SCH (20:00)
[2022-05-04] MEDS: ATORVASTATIN 20 MG TAB PO SCH (20:03)
[2022-05-04] MEDS: TAMSULOSIN 0.4 MG CAP PO SCH (20:04)
[2022-05-04 20:09] VITALS: BP 145/78
[2022-05-04] MEDS: **NOTE PATIENT COMMENT** MISC XX SCH (20:11)
[2022-05-04] MEDS ORDERED: **NOTE PATIENT COMMENT** MISC XX SCH (21:00)
[2022-05-04] MEDS ORDERED: HYDROMORPHONE HCL 0.5 MG/ 0.5 ML SYRINGE (J1170 PER 1) IV ONE (21:05)
[2022-05-04] MEDS ORDERED: RAMELTEON 8 MG TAB (ROZEREM) PO PRN (22:10)
[2022-05-04 22:12] VITALS: BP 160/70
[2022-05-05] MEDS: MORPHINE 4 MG/ML 1ML VIAL/SYRINGE IV PRN ×3 (02:29→19:01)
[2022-05-05] MEDS: NORCO, ANEXSIA 5/325MG TABLET (HYDROcodone/ACETAMINOPHEN) PO PRN ×3 (03:02→22:51)
[2022-05-05 03:03] VITALS: BP 158/64
[2022-05-05] MEDS: LORazepam 0.5 MG TAB PO PRN ×3 (04:19→18:58)
[2022-05-05] MEDS: BACLOFEN 10 MG TAB PO PRN ×2 (05:37→21:59)
[2022-05-05] MEDS: DOCUSATE SODIUM 100MG CAPSULE PO SCH ×2 (05:37→21:59)
[2022-05-05 06:00] VITALS: BP 152/66
[2022-05-05 06:33] LABS: HEMATOCRIT 27.9 % (42.0-52.0); HEMOGLOBIN 8.8 g/dl (13.5-17.5); MEAN CORPUSCULAR HEMOGLOBIN 28.9 pg (27.0-33.0); MEAN CORPUSCULAR HGB CONC 31.5 g/dl (32.0-36.5); MEAN CORPUSCULAR VOLUME 91.5 fl (80.0-96.0); PLATELET COUNT, AUTOMATED 330 10^3/uL (150-450); RED BLOOD COUNT 3.05 10^6/uL (4.30-6.10); WHITE BLOOD COUNT 4.4 10^3/uL (4.0-10.0)
[2022-05-05 07:07] LABS: CALCIUM LEVEL 8.9 MG/DL (8.8-10.2); CREATININE FOR GFR 1.48 MG/DL (0.70-1.30); GLOMERULAR FILTRATION RATE 48.8 (>42); POTASSIUM SERUM 5.1 MEQ/L (3.5-5.1)
[2022-05-05] MEDS: LIDOCAINE 5% (LIDODERM) PATCH TD SCH (08:31)
[2022-05-05] MEDS: ENOXAPARIN 40MG/0.4ML SYRINGE (J1650 PER 10MG) SC SCH (08:31)
[2022-05-05] MEDS: MIRALAX *UNIT DOSE* 17GM PACKET PO SCH (08:34)
[2022-05-05] MEDS: ASPIRIN 81 MG CHEW TABLET PO SCH (08:34)
[2022-05-05] MEDS: LACTOBACILLUS ACIDOPHILUS CAP (BACID) PO SCH ×3 (08:34→18:00)
[2022-05-05] MEDS: SERTRALINE 100 MG TAB PO SCH (08:34)
[2022-05-05] MEDS: busPIRone 5 MG TAB PO SCH (08:35)
[2022-05-05] MEDS: **hydrALAZINE** 10 MG TAB PO SCH ×3 (08:35→22:03)
[2022-05-05] MEDS: BISACODYL 5 MG TAB PO PRN (08:35)
[2022-05-05] MEDS ORDERED: PREVNAR-20 VACCINE 0.5ML SYRINGE IM.IMMUN ONE (09:00)
[2022-05-05 10:00] VITALS: BP 145/66
[2022-05-05] MEDS ORDERED: MORPHINE 2 MG/ML 1ML VIAL IV ONE (10:45)
[2022-05-05] MEDS: MECLIZINE 25 MG TABLET PO PRN (13:02)
[2022-05-05 14:00] VITALS: BP 137/58
[2022-05-05] MEDS: methylPREDNISolone 40MG 1ML VIAL IV SCH (15:55)
[2022-05-05 18:00] VITALS: BP 129/46
[2022-05-05] MEDS ORDERED: ALBUTEROL SULFATE 2.5 MG/0.5 ML INH NEB SOLN NEB PRN (19:00)
[2022-05-05] MEDS ORDERED: IPRATROPIUM 0.5MG/ALBUTEROL 2.5MG INH SOL UD 3ML (DUONEB) NEB STA (19:02)
[2022-05-05] MEDS: IPRATROPIUM 0.5MG/ALBUTEROL 2.5MG INH SOL UD 3ML (DUONEB) NEB SCH ×2 (20:00→23:13)
[2022-05-05] MEDS: ATORVASTATIN 20 MG TAB PO SCH (21:59)
[2022-05-05] MEDS: guaiFENesin ER 600 MG TAB PO SCH (21:59)
[2022-05-05] MEDS: TAMSULOSIN 0.4 MG CAP PO SCH (21:59)
[2022-05-05 22:00] VITALS: BP 160/70
[2022-05-05] MEDS: **NOTE PATIENT COMMENT** MISC XX SCH (22:00)
[2022-05-06] MEDS: MORPHINE 4 MG/ML 1ML VIAL/SYRINGE IV PRN ×3 (00:02→13:03)
[2022-05-06] MEDS ORDERED: NALOXONE INJ 0.4MG/1ML VIAL (J2310 PER 1MG) IV PRN (01:40)
[2022-05-06] MEDS: LORazepam 0.5 MG TAB PO PRN ×2 (01:50→10:29)
[2022-05-06] MEDS ORDERED: HYDROMORPHONE HCL 0.5 MG/ 0.5 ML SYRINGE (J1170 PER 1) IV ONE (02:00)
[2022-05-06] MEDS: IPRATROPIUM 0.5MG/ALBUTEROL 2.5MG INH SOL UD 3ML (DUONEB) NEB SCH ×6 (03:53→20:37)
[2022-05-06 05:50] LABS: VENOUS BASE EXCESS -0.7 (-2.0-2.0); VENOUS HCO3 25.7 MEQ/L (23.0-27.0); VENOUS O2 SATURATION 97.1 % (60.0-80.0); VENOUS PARTIAL PRESSURE CO2 50.5 mmHg (38.0-50.0); VENOUS PARTIAL PRESSURE O2 100.4 mmHg (30.0-50.0); VENOUS PH 7.324 UNITS (7.330-7.430); VENOUS STANDARD HCO3 23.9 MEQ/L; VENOUS TOTAL CO2 27.2 MEQ/L (24.0-28.0)
[2022-05-06 05:54] LABS: HEMATOCRIT 28.4 % (42.0-52.0); HEMOGLOBIN 8.8 g/dl (13.5-17.5); MEAN CORPUSCULAR HEMOGLOBIN 28.4 pg (27.0-33.0); MEAN CORPUSCULAR VOLUME 91.6 fl (80.0-96.0); PLATELET COUNT, AUTOMATED 330 10^3/uL (150-450); WHITE BLOOD COUNT 4.8 10^3/uL (4.0-10.0)
[2022-05-06 06:00] VITALS: BP_SYST 140; BP_SYST 151; BP_DIAS 106; BP_DIAS 80
[2022-05-06 06:12] LABS: ABG BASE EXCESS -2.2 (-2.0-2.0); ABG HCO3 23.2 MEQ/L (22.0-26.0); ABG O2 SATURATION 98.3 % (95.0-99.0); ABG PARTIAL PRESSURE CO2 42.2 mmHg (35.0-45.0); ABG STANDARD HCO3 22.7 MEQ/L (22.0-26.0); ABG TOTAL CO2 24.5 MEQ/L (23.0-31.0); ABG pH (ARTERIAL) 7.358 UNITS (7.350-7.450)
[2022-05-06 06:31] LABS: CALCIUM LEVEL 8.9 MG/DL (8.8-10.2); CREATININE FOR GFR 1.68 MG/DL (0.70-1.30); GLOMERULAR FILTRATION RATE 42.2 (>42); MAGNESIUM LEVEL 2.2 MG/DL (1.8-2.4); POTASSIUM SERUM 4.7 MEQ/L (3.5-5.1)
[2022-05-06 10:00] VITALS: BP 138/48
[2022-05-06] MEDS: LACTOBACILLUS ACIDOPHILUS CAP (BACID) PO SCH ×3 (10:28→17:11)
[2022-05-06] MEDS: SERTRALINE 100 MG TAB PO SCH (10:28)
[2022-05-06] MEDS: DOCUSATE SODIUM 100MG CAPSULE PO SCH ×2 (10:29→20:24)
[2022-05-06] MEDS: ASPIRIN 81 MG CHEW TABLET PO SCH (10:29)
[2022-05-06] MEDS: MECLIZINE 25 MG TABLET PO PRN (10:29)
[2022-05-06] MEDS: MIRALAX *UNIT DOSE* 17GM PACKET PO SCH (10:29)
[2022-05-06] MEDS: NORCO, ANEXSIA 5/325MG TABLET (HYDROcodone/ACETAMINOPHEN) PO PRN ×2 (10:30→15:32)
[2022-05-06] MEDS: BACLOFEN 10 MG TAB PO PRN (10:30)
[2022-05-06] MEDS: BISACODYL 5 MG TAB PO PRN (10:31)
[2022-05-06] MEDS: busPIRone 5 MG TAB PO SCH (10:31)
[2022-05-06] MEDS: guaiFENesin ER 600 MG TAB PO SCH ×2 (10:31→21:00)
[2022-05-06 10:34] VITALS: BP 158/82
[2022-05-06] MEDS: **hydrALAZINE** 10 MG TAB PO SCH ×2 (10:34→15:31)
[2022-05-06] MEDS: LIDOCAINE 5% (LIDODERM) PATCH TD SCH (10:35)
[2022-05-06] MEDS: ENOXAPARIN 40MG/0.4ML SYRINGE (J1650 PER 10MG) SC SCH (10:35)
[2022-05-06] MEDS ORDERED: FLEET ENEMA PR PRN (13:35)
[2022-05-06] MEDS ORDERED: LORazepam 0.5 MG TAB PO PRN ×2 (15:15→16:50)
[2022-05-06] MEDS ORDERED: oxyBUTYnin 5 MG TAB PO PRN (15:15)
[2022-05-06] MEDS: methylPREDNISolone 40MG 1ML VIAL IV SCH (15:31)
[2022-05-06] MEDS ORDERED: IPRATROPIUM 0.5MG/ALBUTEROL 2.5MG INH SOL UD 3ML (DUONEB) NEB STA (15:36)
[2022-05-06] MEDS ORDERED: HALOPERIDOL 5MG/ML VIAL (J1630 PER 1) IV PRN (16:50)
[2022-05-06] MEDS: MORPHINE 10MG/0.5ML ORAL CONCENTRATE SOLUTION U/D SL PRN ×5 (17:12→22:41)
[2022-05-06] MEDS ORDERED: NICOTINE 21MG/24HR 1 EA TRANSDERMAL TD ONE (17:40)
[2022-05-06] MEDS: ONDANSETRON 4MG 2ML VIAL IV PRN ×2 (18:53→23:05)
[2022-05-06] MEDS: TAMSULOSIN 0.4 MG CAP PO SCH (20:24)
[2022-05-06] MEDS: **NOTE PATIENT COMMENT** MISC XX SCH (21:00)
[2022-05-06] MEDS: LORazepam 2 MG TAB PO PRN (23:05)
[2022-05-07] MEDS: MORPHINE 10MG/0.5ML ORAL CONCENTRATE SOLUTION U/D SL PRN ×5 (01:40→10:22)
[2022-05-07] MEDS: IPRATROPIUM 0.5MG/ALBUTEROL 2.5MG INH SOL UD 3ML (DUONEB) NEB SCH ×5 (04:00→22:31)
[2022-05-07] MEDS: LORazepam 2 MG TAB PO PRN ×3 (06:45→19:17)
[2022-05-07] MEDS: LACTOBACILLUS ACIDOPHILUS CAP (BACID) PO SCH ×3 (08:00→17:58)
[2022-05-07] MEDS: ENOXAPARIN 40MG/0.4ML SYRINGE (J1650 PER 10MG) SC SCH (09:00)
[2022-05-07] MEDS: SERTRALINE 100 MG TAB PO SCH (09:00)
[2022-05-07] MEDS: MIRALAX *UNIT DOSE* 17GM PACKET PO SCH (09:00)
[2022-05-07] MEDS: guaiFENesin ER 600 MG TAB PO SCH (09:00)
[2022-05-07] MEDS: DOCUSATE SODIUM 100MG CAPSULE PO SCH ×2 (09:00→21:00)
[2022-05-07] MEDS: busPIRone 5 MG TAB PO SCH (09:00)
[2022-05-07] MEDS: ASPIRIN 81 MG CHEW TABLET PO SCH (09:00)
[2022-05-07] MEDS ORDERED: EPIDURAL/PCA KEYS XX PRN (13:00)
[2022-05-07] MEDS: MORPHINE SULF IN 0.9% NACL 100 MG in IV 1 EA IV SCH ×2 (14:41)
[2022-05-07] MEDS: NICOTINE 21MG/24HR 1 EA TRANSDERMAL TD SCH (14:41)
[2022-05-07] MEDS: LIDOCAINE 5% (LIDODERM) PATCH TD SCH (14:42)
[2022-05-07] MEDS: ONDANSETRON 4MG 2ML VIAL IV PRN (15:34)
[2022-05-07] MEDS: **NOTE PATIENT COMMENT** MISC XX SCH (21:00)
[2022-05-07] MEDS ORDERED: SCOPOLAMINE 1MG TRANSDERMAL PATCH TOP SCH (21:00)
[2022-05-07] MEDS: NORCO, ANEXSIA 5/325MG TABLET (HYDROcodone/ACETAMINOPHEN) PO PRN (21:05)
[2022-05-08] MEDS: LORazepam 2 MG TAB PO PRN ×5 (00:38→22:26)
[2022-05-08] MEDS: IPRATROPIUM 0.5MG/ALBUTEROL 2.5MG INH SOL UD 3ML (DUONEB) NEB SCH ×6 (04:00→20:00)
[2022-05-08] MEDS: DOCUSATE SODIUM 100MG CAPSULE PO SCH ×2 (07:57→21:00)
[2022-05-08] MEDS: busPIRone 5 MG TAB PO SCH (07:57)
[2022-05-08] MEDS: SERTRALINE 100 MG TAB PO SCH (07:57)
[2022-05-08] MEDS: LACTOBACILLUS ACIDOPHILUS CAP (BACID) PO SCH ×3 (07:57→16:24)
[2022-05-08] MEDS: LIDOCAINE 5% (LIDODERM) PATCH TD SCH (08:22)
[2022-05-08] MEDS: NICOTINE 21MG/24HR 1 EA TRANSDERMAL TD SCH (08:23)
[2022-05-08] MEDS: MORPHINE SULF IN 0.9% NACL 100 MG in IV 1 EA IV SCH ×2 (16:04)
[2022-05-08] MEDS: **NOTE PATIENT COMMENT** MISC XX SCH (21:00)
== END 2022-05-08 23:00 | disposition expired | DRG 177 ==
LOC: M ED 09:48 → M ED INP 14:57 → ENRESERV 16:31 → M MSPAV 17:34
PROVIDERS: ADMIT Family Medicine; ATTEND Student in an Organized Health Care Education/Training Program
DX: J15.6 Pneumonia due to other Gram-negative bacteria (principal); J96.21 Acute and chronic respiratory failure with hypoxia; J44.0 Chronic obstructive pulmonary disease with (acute) lower respiratory infection; J90 Pleural effusion, not elsewhere classified; G90.511 Complex regional pain syndrome I of right upper limb; I27.20 Pulmonary hypertension, unspecified; F41.0 Panic disorder [episodic paroxysmal anxiety]; I25.10 Atherosclerotic heart disease of native coronary artery without angina pectoris; Z51.5 Encounter for palliative care; Z66 Do not resuscitate; E78.5 Hyperlipidemia, unspecified; K21.9 Gastro-esophageal reflux disease without esophagitis; I13.10 Hypertensive heart and chronic kidney disease without heart failure, with stage 1 through stage 4 chronic kidney disease, or unspecified chronic kidney disease; R73.03 Prediabetes; F32.A Depression, unspecified; N40.1 Benign prostatic hyperplasia with lower urinary tract symptoms; I71.40 Abdominal aortic aneurysm, without rupture, unspecified; R91.8 Other nonspecific abnormal finding of lung field; F17.210 Nicotine dependence, cigarettes, uncomplicated; Y95 Nosocomial condition; R10.31 Right lower quadrant pain; R33.9 Retention of urine, unspecified; R41.0 Disorientation, unspecified; R00.1 Bradycardia, unspecified; I49.3 Ventricular premature depolarization; N18.30 Chronic kidney disease, stage 3 unspecified; M54.50 Low back pain, unspecified; Z99.81 Dependence on supplemental oxygen; Z77.090 Contact with and (suspected) exposure to asbestos; Z86.73 Personal history of transient ischemic attack (TIA), and cerebral infarction without residual deficits; Z87.19 Personal history of other diseases of the digestive system; Z88.8 Allergy status to other drugs, medicaments and biological substances; Z79.899 Other long term (current) drug therapy